=== PATIENT | female | born 1950 | race Hispanic/Latino ===

== ENCOUNTER 2019-06-29 10:15 | Observation (INO) | payer MEDICARE, OTHER ==
--- NOTE | 2019-06-25 12:09 | Diagnostic Imaging Report ---
Chest, 2 views, 06/25/2019. History: Preop, thyroid surgery. Comparison: None available. Findings: The cardiomediastinal silhouette and pulmonary vasculature are within normal limits. The lungs are clear without evidence of consolidation or pleural effusion. Degenerative changes are noted in the upper thoracic spine. There are no acute osseous or soft tissue abnormalities. Impression: No acute cardiopulmonary abnormality. Signed by: Sonido Anaya on 06/25/2019 12:06 PM
[2019-06-25 12:12] LABS: BASOPHILS % 0.3 % (0.0-1.0); EOSINOPHILS # (AUTO) 0.1 (0.0-0.4); EOSINOPHILS % 1.2 % (0.0-6.0); HEMATOCRIT 39.9 % (34.2-44.1); HEMOGLOBIN 12.5 g/dL (12.0-16.0); LYMPHOCYTES # (AUTO) 2.6 (1.0-3.2); LYMPHOCYTES % 39.8 % (18.0-39.1); MEAN CORPUSCULAR HEMOGLOBIN 28.9 pg (28-32); MEAN CORPUSCULAR HGB CONC 31.3 g/dL (31-35); MEAN CORPUSCULAR VOLUME 92.1 fL (81-99); MONOCYTES # (AUTO) 0.5 (0.2-0.8); MONOCYTES % 6.8 % (4.4-11.3); NEUTROPHILS # (AUTO) 3.4 (2.1-6.9); NEUTROPHILS % 51.7 % (38.7-80.0); PLATELET COUNT 196 x10e3/uL (140-360); RED BLOOD COUNT 4.33 x10e6/uL (3.6-5.1); RED CELL DISTRIBUTION WIDTH 13.9 % (11.7-14.4)
[2019-06-25 12:30] LABS: ANION GAP 11.9 mmol/L (8-16); BLOOD UREA NITROGEN 13 mg/dL (7-26); BUN/CREATININE RATIO 19 (6-25); CALCIUM 9.5 mg/dL (8.4-10.2); CARBON DIOXIDE 28 mmol/L (22-29); CHLORIDE 105 mmol/L (98-107); EST GLOMERULAR FILTRATION RATE > 60 ML/MIN (60-); GLUCOSE 139 mg/dL (74-118); POTASSIUM 3.9 mmol/L (3.5-5.1); SODIUM 141 mmol/L (136-145)
[~2019-06-29] VITALS: Ht 157.5 cm; Wt 76.7 kg
[~2019-06-29 10:15] MED LIST: ALPRAZOLAM0.25 MG PO; ASPIRIN81 MG PO; ATENOLOL50 MG PO; ATORVASTATIN CA20 MG PO; CLOPIDOGREL75 MG PO; GLIPIZIDE5 MG PO; LISINOPRIL10 MG PO
--- OUTSIDE RECORDS SUMMARY | 2019-06-29 10:19 | XMS REPORT ---
Author Author [facility] Address Unknown Phone Unavailable Care Team Providers Care Transportation Assistant Name Role Phone MAYNOR BATES Unavailable Unavailable Problems This patient has no known problems. Allergies, Adverse Reactions, Alerts This patient has no known allergies or adverse reactions. Medications This patient has no known medications. Results Test Description Test Time Test Comments Text Results Atomic Results Result Comments CHEST 2 VIEWS 2019-06-25 12:04:00 [place] [address] Patient Name: LINDA GONZALEZ MR #: [id number] : 1950 Age/Sex: 69/F Req #: [id number] [facility] Physician: Ordered by: MAYNOR BATES MD Report #: [id number] Location: OR Room/Bed: Procedure: [id number] DX/CHEST 2 VIEWS Exam Date: Exam Time: REPORT STATUS: Signed Chest, 2 views, 06/25/2019. History: Preop, thyroid surgery. Comparison: None available. Findings: The cardiomediastinal silhouette and pulmonary vasculature are within normal limits. The lungs are clear without evidence of consolidation or pleural effusion. Degenerative changes are noted in the upper thoracic spine. There are no acute osseous or soft tissue abnormalities. Impression: No acute cardiopulmonary abnormality. Signed by: Leonora Anaya on 06/25/2019 12:06 PM Dictated By: LEONORA ANAYA MD 1206 Transcribed By: LIBIA on 06/25/19 1206 COPY TO: MAYNOR BATES MD BREAST STEREO CORE BIOPSY RIGHT 2019-04-23 16:51:56 - BREAST STEREO CORE BIOPSY RIGHTSTEREOTACTIC GUIDED BIOPSY RIGHT BREAST USING VACUUM DEVICE WITH MARKING DEVICE INSERTED AND POST MAMMOGRAPHIC IMAGIN04/19/2019CLINICAL: Stereotactic Biopsy, right breast. Comparison is made to exams dated 02/06/2019 mammogram, 01/18/2018 mammogram, and [facility] A stereotactic guided biopsy was performed for the area of calcifications located in the right breast at 1 o'clock. This was described on the previous mammography report. The skin was prepped in the usual manner. Local anesthetic was administered to the access site. The abnormality was approached using an upright digital mammography unit. A 10 gauge biopsy needle was placed adjacent to the abnormality under computer guidance and confirmatory stereotactic mamm ography images were obtained to document needle placement. Once the needle was documented to be in the correct location, multiple specimens were obtained using the [employer] system. A clip was inserted into the biopsy cavity. A skin closure strip was applied to the access site. Post procedure mammographic imaging was obtained. The specimens were sent to the laboratory for pathological analysis. IMPRESSION: STEREOTACTIC GUIDED BIOPSY BENIGN Stereotactic guided biopsy of the area of calcifications in the right breast at 1 o'clock was performed. PATHOLOGY INDICTES:Benign fibroadenoma with calcifications. A follow-up mammogram and an ultrasound in 6 months is recommended to demonstrate stability. Ary Rae M.D. dm/:04/23/2019 16:51:56 Attending Technologist: Harriet ROWE, [facility]: Brandie ROWE RT(M), [facility]-letter sent: Benign Biopsy BREAST STEREO CORE BIOPSY RIGHT 2019-04-23 16:51:56 - BREAST STEREO CORE BIOPSY RIGHTSTEREOTACTIC GUIDED BIOPSY RIGHT BREAST USING VACUUM DEVICE WITH MARKING DEVICE INSERTED AND POST MAMMOGRAPHIC IMAGIN04/19/2019CLINICAL: Stereotactic Biopsy, right breast. Comparison is made to exams dated 02/06/2019 mammogram, 01/18/2018 mammogram, and 09/26/2015 [facility]ogram [facility] A stereotactic guided biopsy was performed for the area of calcifications located in the right breast at 1 o'clock. This was described on the previous mammography report. The skin was prepped in the usual manner. Local anesthetic was administered to the access site. The abnormality was approached using an upright digital mammography unit. A 10 gauge biopsy needle was placed adjacent to the abnormality under computer guidance and confirmatory stereotactic mamm ography images were obtained to document needle placement. Once the needle was documented to be in the correct location, multiple specimens were obtained using the [employer] system. A clip was inserted into the biopsy cavity. A skin closure strip was applied to the access site. Post procedure mammographic imaging was obtained. The specimens were sent to the laboratory for pathological analysis. IMPRESSION: STEREOTACTIC GUIDED BIOPSY BENIGN Stereotactic guided biopsy of the area of calcifications in the right breast at 1 o'clock was performed. PATHOLOGY INDICTES:Benign fibroadenoma with calcifications. A follow-up mammogram and an ultrasound in 6 months is recommended to demonstrate stability. Ary Rae M.D. dm/:04/23/2019 16:51:56 Attending Technologist: Harriet ROWE, [facility] Technologist: Brandie ROWE RT(M), [facility] sent: Benign Biopsy DIAG MAMM RIGHT CAD DIGITAL 2019-03-02 09:16:48 - DIAG MAMM RIGHT CAD DIGITALUNILATERAL RIGHT DIGITAL DIAGNOSTIC MAMMOGRAM WITH CAD: 03/02/2019CLINICAL: Recall from screening. Current mammographic images were evaluated by either a [employer] M-Vu or a [employer] ImageChecker CAD (computer aided detection system). Comparison is made to exams dated 02/06/2019 mammogram, 01/18/2018 mammogram, and 09/26/2015 [facility]. There are scattered fibroglandular tissues in the right breast. Grouped coarse heterogenous calcifications in the right breast at 1 o'clock, 8 cm from the nipple. No suspicious mass, architectural distortion, or lymph node abnormality detected. IMPRESSION: SUSPICIOUS OF MALIGNANCYGrouped coarse heterogenous calcific lesions in the right breast at 1 o'clock, 8 cm from the nipple. Findings represent low suspic ion for malignancy, BI-RADS 4A. Stereotactic guided core biopsy is recommended at this time.Results were discussed with the patient.Bryon Marrero M.D. ss/:03/02/2019 09:16:48 Administrator: Lindsey ROWE, [facility]-letter sent: BIRADS 4/5 Biopsy Mammogram BI-RADS: 4a Suspicious abnormality - low suspicion for malignancy SCR MAMM BILATERAL JENNIFER CAD DIGITAL 2019-02-07 10:55:29 - SCR MAMM BILATERAL JENNIFER CAD DIGITALBILATERAL DIGITAL SCREENING MAMMOGRAM 3D/2D WITH CAD: 02/06/2019CLINICAL: Asymptomatic. Digital breast tomosynthesis was performed in addition to routine CC and MLO views. Current mammographic images were evaluated by either a [employer] M-Vu or a [employer] CAD (computer aided detection system). Comparison is made to exams dated 01/18/2018 mammogram, mammogram, and 09/19/2013 [facility]. There are scattered fibroglandular tissues in both breasts. There is a 3 mm grouping of calcifications in the upper inner right breast (at approximately 1 o'clock), middle depth, 8 cm from the nipple. No other significant masses, calcifications, or other findings are seen in either breast. IMPRESSION: INCOMPLETE ASSESSMENT: ADDITIONAL IMAGING EVALUATION RECOMMENDEDThe 3 mm grouping of calcifications in the right breast are indeterminate. Additional views with possible ultrasound are recommended. Syl Guzman D.O. al/: 02/07/2019 10:55:29 Administrator: Lindsey ROWE [facility] sent: Additional Imaging Mammogram BI-RADS: 0 Indeterminate
[2019-06-29] MEDS ORDERED: CEFAZOLIN SOD 1 GM/NS 50ML 100 ML IV ONE (10:40)
[2019-06-29] MEDS ORDERED: DEXAMETHASONE SOD PHOS INJ 4 MG/ML VIAL ONE (12:49)
[2019-06-29] MEDS ORDERED: ROCURONIUM BROMIDE 10 MG/ML 5ML VIAL ONE (12:49)
[2019-06-29] MEDS ORDERED: ONDANSETRON HCL INJ 2MG/ML 2ML 2 MG/ML VIAL ONE (12:49)
[2019-06-29] MEDS ORDERED: SEVOFLURANE INHAL SOLN 250 ML PEN BTL ONE (12:49)
[2019-06-29] MEDS ORDERED: GLYCOPYRROLATE INJ 1MG/ 5 ML SYR ONE (12:49)
[2019-06-29] MEDS ORDERED: NEOSTIGMINE 5 MG/5ML SYR ONE (12:49)
[2019-06-29] MEDS ORDERED: ACETAMINOPHEN 1000 MG/100 ML IV ONE (12:49)
[2019-06-29] MEDS ORDERED: PROPOFOL IV EMULSION 10 MG/ML 20 ML VIAL ONE (12:49)
[2019-06-29] MEDS ORDERED: LIDOCAINE HCL 2% LOCAL INJ 5 ML SDV VIAL INJ ONE (12:49)
[2019-06-29] MEDS ORDERED: MIDAZOLAM HCL 2 MG/2 ML VIAL ONE (13:01)
[2019-06-29] MEDS ORDERED: FENTANYL CITRATE/PF 100MCG/2 ML INJ ONE ×2 (13:01→16:32)
[2019-06-29] MEDS ORDERED: LIDOCAINE HCL (LTA) 4 ML SOLN ONE (14:36)
[2019-06-29] MEDS ORDERED: ACETAMINOPHEN 1000 MG/100 ML 100 ML IV ONE (15:48)
[2019-06-29] MEDS ORDERED: HYDROCODONE/APAP 5MG-325MG TAB PO PRN (16:15)
[2019-06-29] MEDS ORDERED: ONDANSETRON HCL INJ 2MG/ML 2ML 2 MG/ML VIAL IV PRN (16:15)
[2019-06-29] MEDS ORDERED: DEXTROSE 50% SYRINGE 50 ML IV PRN (16:15)
[2019-06-29] MEDS ORDERED: MORPHINE SULFATE INJ 4 MG/ML INJ 1ML IV PRN (16:15)
[2019-06-29] MEDS: INSULIN LISPRO 100 UNIT/1 ML 3ML VIAL SQ SCH ×2 (16:30→21:00)
[2019-06-29] MEDS: ATENOLOL 50 MG TAB PO SCH (17:00)
--- NOTE | 2019-06-29 17:15 | NUR ---
patient arrived to unit via stretcher from PACU. alert and oriented but drowsy with son at bedside. call bates within reach and bed in lowest position.
[2019-06-29 17:22] VITALS: BP 187/83
[2019-06-29 17:24] VITALS: BP 187/83
[2019-06-29] MEDS ORDERED: PNEUMOCOCCAL VACCINE POLYVALENT 23 MCG/0.5 ML VIAL IM SCH (17:25)
[2019-06-29 17:26] VITALS: BP 187/83
--- NOTE | 2019-06-29 18:17 | Operative Report ---
DATE OF PROCEDURE: 06/29/2019 SURGEON: Bebeto Kinney MD PREOPERATIVE DIAGNOSIS: Right thyroid mass. POSTOPERATIVE DIAGNOSIS: Right thyroid mass. PROCEDURE: Right thyroid lobectomy. COMPRESSOR STATION CHIEF ENGINEER: None. ANESTHESIA: General endotracheal. INDICATIONS AND FINDINGS: The patient is a 69-year-old female, who presented with a large mass in right lobe of the thyroid. Surgery was a large mass in the right lobe of the thyroid to replacing almost the entire right lobe of the thyroid. Frozen section appeared to be benign. TECHNIQUE: After adequate general endotracheal anesthesia, placed in supine position. Neck was prepped and draped in a sterile fashion with ChloraPrep solution. Transverse incision made approximately 2 cm above the sternal notch, carried down through subcutaneous tissue and platysma. Subplatysmal flaps were raised superiorly and inferiorly. Strap muscles were divided in the midline. There was a large mass involving the right lobe of the thyroid. This was mobilized from lateral to medial and middle thyroid vein was dissected free and divided between hemoclips as the mass was mobilized. Vessels going to the thyroid were dissected free and divided between hemoclips. Recurrent laryngeal nerve was identified and preserved. Parathyroid also identified and preserved. The mass appeared to be compressing the trachea was extended posteriorly pushing on the trachea and larynx, as it was mobilized. The recurrent laryngeal nerve was identified and preserved. The superior pole vessels were dissected free and divided between hemoclips was then close to the thyroid. The mass was dissected off the recurrent laryngeal nerve and it was completed free then divided close to the isthmus with the isthmus suture ligated with 2-0 Vicryl. The mass was submitted to pathology, appeared to be benign. Hemostasis was seen to be adequate. A 10 mm flat Naveen-Jordan drain was placed into the wound beneath the strap muscles through a separate stab wound incision. The strap muscles were then closed, reapproximated in the midline using 2-0 Vicryl. The platysma was closed with a running suture of 3-0 Vicryl. Skin was closed with a running subcuticular suture of 4-0 Vicryl. Steri-Strips and sterile dressing were applied. The patient tolerated the procedure well. Estimated blood loss was 5 mL. There were no complications. All counts were correct. The patient was taken to the recovery room in satisfactory condition. MD BRIDGET Magdaleno/VIOLETTE /[id number] cc: Yonny Bosch MD
--- NOTE | 2019-06-29 18:50 | NUR ---
rounded with overnight caregiver nurse, patient aware of change and in no distress. call bates within reach, bed in lowest position and son at bedside.
[2019-06-29] MEDS: SODIUM CHLORIDE 0.9% 1000ML 1,000 ML IV SCH ×2 (19:23→21:27)
[2019-06-29 19:38] VITALS: BP 187/83
[2019-06-29 20:00] VITALS: BP 168/86
[2019-06-29] MEDS ORDERED: ATORVASTATIN 20 MG TAB PO SCH (21:00)
[2019-06-29] MEDS ORDERED: ALPRAZOLAM 0.25 MG TAB PO SCH (21:00)
[2019-06-29] MEDS: CEFAZOLIN SOD 1 GM/NS 50ML 100 ML IV SCH (21:27)
[2019-06-29] MEDS ORDERED: CEFAZOLIN SOD 1 GM VIAL IV SCH (22:00)
[2019-06-30] VITALS: BP 139/74
[2019-06-30 04:00] VITALS: BP 127/69
[2019-06-30] MEDS: CEFAZOLIN SOD 1 GM/NS 50ML 100 ML IV SCH (05:19)
--- NOTE | 2019-06-30 06:50 | NUR ---
rounded with energy assistant nurse, patient aware of change and in no distress. call bates within reach and bed in lowest position.
[2019-06-30] MEDS ORDERED: GLIPIZIDE 5 MG TAB PO SCH (07:30)
[2019-06-30] MEDS: INSULIN LISPRO 100 UNIT/1 ML 3ML VIAL SQ SCH ×2 (07:30→11:14)
[2019-06-30 07:55] VITALS: BP 154/77
[2019-06-30 08:15] VITALS: BP 154/77
[2019-06-30] MEDS: ATENOLOL 50 MG TAB PO SCH (08:41)
[2019-06-30] MEDS ORDERED: LISINOPRIL 20 MG TAB PO SCH (09:00)
[2019-06-30 11:17] VITALS: BP 148/76
--- NOTE | 2019-06-30 13:10 | NUR ---
patient alert and oriented. emptied MAIKEL drain of 10cc of serosanguineous fluid. patient states pain is at a tolerable level and in no distress at this time.
[2019-06-30] MEDS ORDERED: TYLENOL WITH C1 EACH PO (15:17)
--- NOTE | 2019-06-30 15:30 | NUR ---
patient alert and oriented with son at bedside. discharge instructions given to patient at this time, as well as instructions of how to change dressing on neck as needed and empty MAIKEL drain. Both verbalized understanding. IV discontinued, catheter in tact and pressure dressing applied. patient to be wheeled to personal auto for son to drive home.
[2019-06-30 15:35] VITALS: BP 131/73
== END 2019-06-30 15:39 | disposition home or self-care (01) ==
LOC: OR 10:15 → PACU V 16:17 → IMCU 17:14
PROVIDERS: ADMIT Surgery; ATTEND Surgery
DX: C73 Malignant neoplasm of thyroid gland (principal); R13.10 Dysphagia, unspecified; I10 Essential (primary) hypertension; E11.9 Type 2 diabetes mellitus without complications; Z01.810 Encounter for preprocedural cardiovascular examination; Z01.812 Encounter for preprocedural laboratory examination; Z01.811 Encounter for preprocedural respiratory examination; I25.10 Atherosclerotic heart disease of native coronary artery without angina pectoris; Z95.5 Presence of coronary angioplasty implant and graft; Z79.82 Long term (current) use of aspirin; Z79.84 Long term (current) use of oral hypoglycemic drugs; Z23 Encounter for immunization
CPT/HCPCS: 36415 ×3; 60220; 71046; 80048; 82948 ×2; 85025; 88307; 88333; 88342; 90732; 93005; G0009; G0378 ×2; J0131; J0690; J1100; J2001; J2250; J2270; J2405; J2704; J3010; J3490; J7030

== ENCOUNTER 2019-08-02 09:19 | Inpatient (IN) | payer MEDICARE ==
[2019-07-30 12:02] LABS: BASOPHILS % 0.2 % (0.0-1.0); EOSINOPHILS # (AUTO) 0.1 (0.0-0.4); EOSINOPHILS % 0.9 % (0.0-6.0); HEMATOCRIT 39.3 % (34.2-44.1); HEMOGLOBIN 12.8 g/dL (12.0-16.0); LYMPHOCYTES # (AUTO) 3.4 (1.0-3.2); LYMPHOCYTES % 39.5 % (18.0-39.1); MEAN CORPUSCULAR HEMOGLOBIN 29.6 pg (28-32); MEAN CORPUSCULAR HGB CONC 32.6 g/dL (31-35); MONOCYTES # (AUTO) 0.7 (0.2-0.8); MONOCYTES % 7.7 % (4.4-11.3); NEUTROPHILS # (AUTO) 4.4 (2.1-6.9); NEUTROPHILS % 51.4 % (38.7-80.0); PLATELET COUNT 175 x10e3/uL (140-360); RED BLOOD COUNT 4.32 x10e6/uL (3.6-5.1); RED CELL DISTRIBUTION WIDTH 13.9 % (11.7-14.4)
[2019-07-30 12:20] LABS: ANION GAP 10.7 mmol/L (8-16); BLOOD UREA NITROGEN 14 mg/dL (7-26); BUN/CREATININE RATIO 18 (6-25); CALCIUM 9.5 mg/dL (8.4-10.2); CARBON DIOXIDE 28 mmol/L (22-29); CHLORIDE 107 mmol/L (98-107); CREATININE, SERUM 0.77 mg/dL (0.57-1.11); EST GLOMERULAR FILTRATION RATE > 60 ML/MIN (60-); GLUCOSE 109 mg/dL (74-118); POTASSIUM 3.7 mmol/L (3.5-5.1); SODIUM 142 mmol/L (136-145)
[2019-08-02] VITALS (18 sets, daily range): BP systolic 81–169; BP diastolic 47–83
[~2019-08-02] VITALS: Ht 157.5 cm; Wt 74.9 kg
[~2019-08-02 09:19] MED LIST changes: +TYLENOL WITH C1 EACH PO
--- OUTSIDE RECORDS SUMMARY | 2019-08-02 09:21 | XMS REPORT | Clinical Summary ---
Author Author [facility] Address Unknown Phone Unavailable Care Team Providers Care Basin Operator Name Role Phone Yonny Estevez MD PCP Allergies No Known Allergies Medications End Date Status Medication Sig Dispensed Refills Start Date Active glipiZIDE (GLUCOTROL) 5 Take 5 mg by 0 MG tablet mouth 2 (two) times a day before meals. Active atenolol (TENORMIN) 50 MG Take 50 mg by 0 tablet mouth daily. Active lisinopril Take 5 mg by 0 (PRINIVIL,ZESTRIL) 5 MG mouth daily. tablet Active pantoprazole (PROTONIX) Take 40 mg by 0 40 MG EC tablet mouth daily. Active citalopram (CeleXA) 20 MG Take 20 mg by 0 tablet mouth daily. Active aspirin (ECOTRIN) 81 MG Take 81 mg by 0 enteric coated tablet mouth daily. Active MULTIVIT Take by 0 &MINERALS/FERROUS FUM mouth. (MULTI VITAMIN ORAL) Active hydroCHLOROthiazide Take 12.5 mg 0 (HYDRODIURIL) 12.5 MG by mouth tablet daily. Active simvastatin (ZOCOR) 40 MG Take 40 mg by 0 tablet mouth nightly. Active Problems Problem Noted Date Coronary artery disease 10/13/2016 Ischemic chest pain 10/08/2016 Coronary artery disease involving [place] coronary artery of [place] heart 10/08/2016 without angina pectoris Stenosis of carotid artery 10/08/2016 Family History Medical History Relation Name Comments Heart disease Father Relation Name Status Comments Father Mother Social History Date Tobacco Use Types Packs/Day Years Used Never Smoker Smokeless Tobacco: Never Used Tobacco Cessation: Counseling Given: No Drinks/Week oz/Week Comments Alcohol Use 1 Glasses of wine 1.0 Yes Sex Assigned at Date Recorded Not on file Industry Job Start Date Occupation Not on file Not on file Not on file Travel End Travel History Travel Start No recent travel history available. Last Filed Vital Signs Not on file Plan of Treatment Health Maintenance Due Date Last Done Comments BREAST CANCER SCREENING 1999 COLONOSCOPY SCREENING 1999 SHINGLES VACCINES (#1) 1999 65+ PNEUMOCOCCAL VACCINE 2014 (1 of 2 - PCV13) INFLUENZA VACCINE 06/07/2019 Implants Device Identifier Shelf Expiration Date Model / Serial / Lot Implanted Type Area Manufactur er 07/16/2017 [id number] / / [id number] Stent Coronary Syst Synergy (Mr) Coronary N/A: N/A BSC 3.00mm X 24mm - [id number] Stents INTERVENTI Implanted: 10/13/2016 at [facility] (Quantity not on file) CARDIOLOGY 06/03/2017 [id number] / / [id number] Stent Coronary Syst Synergy (Mr) Coronary N/A: N/A BSC 3.00mm X 16mm - [id number] Stents INTERVENTI Implanted: 10/13/2016 at [facility] (Quantity not on file) CARDIOLOGY Results Not on fileafter 08/01/2018 Insurance Type Payer Benefit Subscriber ID Effective Phone Address Plan / Dates Group PPO HUMANA MEDICARE HUMANA xxxxxxxxx 2013-P MEDICARE resent PPO/PFFS/[facility] Advance Directives For more information, please contact: [phone] Patient Staff Cytotechnologist Explanation Type Date Recorded Advance Directives, Living Will and Medical Power of Repairer And Checker
[2019-08-02] MEDS ORDERED: CEFAZOLIN SOD 1 GM/NS 50ML 100 ML IV ONE (09:49)
[2019-08-02] MEDS ORDERED: ACETAMINOPHEN 1000 MG/100 ML 100 ML IV ONE (12:45)
[2019-08-02] MEDS ORDERED: MORPHINE SULFATE INJ 4 MG/ML INJ 1ML IV PRN (13:00)
[2019-08-02] MEDS ORDERED: ONDANSETRON HCL INJ 2MG/ML 2ML 2 MG/ML VIAL IV PRN (13:00)
[2019-08-02] MEDS ORDERED: DEXTROSE 50% SYRINGE 50 ML IV PRN (13:00)
[2019-08-02] MEDS ORDERED: HYDROMORPHONE 1MG/1ML INJ ONE (13:02)
--- OUTSIDE RECORDS SUMMARY | 2019-08-02 13:10 | XMS REPORT | Clinical Summary ---
Author Author [facility] Address Unknown Phone Unavailable Care Team Providers Care Audio Visual Arts Director Name Role Phone Yonny Estevez MD PCP [...] chest pain 10/08/2016 Coronary artery disease involving [place] coronary artery of [place] heart 10/08/2016 without angina pectoris Stenosis of [...] Lot Implanted Type Area Manufactur er 07/16/2017 [id number] / / [id number] Stent Coronary Syst Synergy (Mr) Coronary N/A: N/A BSC 3.00mm X 24mm - [id number] Stents INTERVENTI Implanted: 10/13/2016 at [facility] (Quantity not on file) CARDIOLOGY 06/03/2017 [id number] / / [id number] Stent Coronary Syst Synergy (Mr) Coronary N/A: N/A BSC 3.00mm X 16mm - [id number] Stents INTERVENTI Implanted: 10/13/2016 at [facility] (Quantity not on file) CARDIOLOGY Results Not on fileafter 08/01/2018 Insurance Type Payer Benefit Subscriber ID Effective Phone Address Plan / Dates Group PPO HUMANA MEDICARE HUMANA xxxxxxxxx 2013-P MEDICARE resent PPO/PFFS/E [facility] Advance Directives For more information, please contact: [phone] Patient Director Case Explanation Type Date Recorded Advance Directives, Living Will and Medical Power of Purchasing Coordinator
[2019-08-02] MEDS ORDERED: FENTANYL CITRATE/PF 100MCG/2 ML INJ ONE ×2 (13:35→19:09)
[2019-08-02] MEDS ORDERED: HYDRALAZINE HCL 20 MG/ML VIAL ONE (14:29)
[2019-08-02] MEDS: GLIPIZIDE 5 MG TAB PO SCH (16:22)
[2019-08-02] MEDS: INSULIN LISPRO 100 UNIT/1 ML 3ML VIAL SQ SCH ×2 (16:22→21:00)
[2019-08-02] MEDS: ATENOLOL 50 MG TAB PO SCH (16:23)
--- NOTE | 2019-08-02 16:38 | NUR ---
PT C/O OF FEELING LIKE SHE NEEDS TO COUGH SOMETHING UP (WHEEZING NOTED) PT GASPING FOR AIR PT IS ON 2L NC SATING 99% PLACED PT ON MASK HIGH FLOW AT THIS TIME DUE TO SOB AND WHEEZING NOTED. 10L AT THIS TIME PT WHEEZING HAS STOPPED , FEELS BETTER AND IS NOT LESS ANXIOUS , WILL MONITOR CLOSELY
[2019-08-02] MEDS: SODIUM CHLORIDE 0.9% 1000ML 1,000 ML IV SCH ×2 (17:08→20:32)
--- NOTE | 2019-08-02 17:08 | NUR ---
REASSESSED PT WHO IS WITH FAMILY AT BEDSIDE WHO CONTINUES TO BE ON MASK . ASKED IF OK TO PLACE BACK TO NC. PT STATES MASK FEELS BETTER AT THIS TIME , WILL REASSESS IN A COUPLE MINUTES
--- NOTE | 2019-08-02 17:19 | NUR ---
PT CALLED LIGHT WITH SOB WITH MASK ON, DEEP BREATHINGS WERE ENCOURAGED TO RELAX, PAGED MD BATES FOR ORDERS . PT STATES NOT FEELING BETTER, PAGED MD BATES FOR ORDERS
--- NOTE | 2019-08-02 17:24 | NUR ---
SPOKE WITH PAULO , TOLD HIM ABOUT THE PT FEELING SOB, AND VERY ANXIOUS. MD ASKED TO TAKE DRESSING OFF NECK AND ASSESS FOR SWELLING. MD STATES HE WILL COME SEE PT NOW
--- NOTE | 2019-08-02 17:34 | NUR ---
CODE TEAM CALLED, MD BATES AT BEDSIDE Addendum: 08/02/19 at 1902 by Nina López RN 1745 TIME IS WRONG
--- NOTE | 2019-08-02 17:38 | NUR ---
ASSESSED DRESSING. NECK DOES NOT APPEAR SWOLLEN. INCISION IS CLOSED AND DRY AT THIS TIME PT IS NOW GASPING FOR AIR, SOB, VENTI MASK ON AND PT SATURATIONS RAPIDLY DROPPED FROM 95% TO LOW 80%. PT STARTED TURNING PURPLE, EYES ROLLED RAPID CALLED NO PULSE FELT, PLACED PT FLAT, COMPRESSIONS IMMEDIATELY STARTED.
[2019-08-02] MEDS ORDERED: SODIUM CHLORIDE 0.9% 500ML 500 ML ONE (18:15)
--- NOTE | 2019-08-02 18:26 | NUR ---
ANESTHESIA TEAM HERE TO TAKE PT TO OR. PT IS NOW OFF UNIT
[2019-08-02] MEDS ORDERED: ROCURONIUM BROMIDE 10 MG/ML 5ML VIAL ONE ×2 (18:30→18:50)
[2019-08-02] MEDS ORDERED: SEVOFLURANE INHAL SOLN 250 ML PEN BTL ONE ×2 (18:30→18:50)
[2019-08-02] MEDS ORDERED: GLYCOPYRROLATE INJ 1MG/ 5 ML SYR ONE (18:50)
[2019-08-02] MEDS ORDERED: NEOSTIGMINE 5 MG/5ML SYR ONE (18:50)
[2019-08-02] MEDS ORDERED: PROPOFOL IV EMULSION 10 MG/ML 20 ML VIAL ONE (18:50)
[2019-08-02] MEDS ORDERED: LIDOCAINE HCL 2% LOCAL INJ 5 ML SDV VIAL INJ ONE (18:50)
[2019-08-02] MEDS ORDERED: ONDANSETRON HCL INJ 2MG/ML 2ML 2 MG/ML VIAL ONE (18:50)
[2019-08-02] MEDS ORDERED: DEXAMETHASONE SOD PHOS INJ 4 MG/ML VIAL ONE (18:50)
[2019-08-02] MEDS ORDERED: MIDAZOLAM HCL 2 MG/2 ML VIAL ONE (19:09)
--- NOTE | 2019-08-02 19:21 | NUR ---
REPORT CALLED TO MINA IN ICU
--- NOTE | 2019-08-02 19:31 | Operative Report ---
DATE OF PROCEDURE: 08/02/2019 SURGEON: Bebeto Kinney MD PREOPERATIVE DIAGNOSIS: Carcinoma of the thyroid gland. POSTOPERATIVE DIAGNOSIS: Carcinoma of the thyroid gland, status post right lower thyroid lobectomy. PROCEDURE: Left thyroid lobectomy for completion of total thyroidectomy. POULTRY SCIENTIST: None. ANESTHESIA: General. INDICATIONS AND FINDINGS: The patient is a 69-year-old female had surgery a few weeks ago for large mass in the right lobe of the thyroid, which on permanent section was found to be carcinoma. Surgery has found to have a small left lobe of the thyroid, which was overlying the lower thyroid cartilages, but extended down substernally. There was no residual right thyroid left that could be identified. TECHNIQUE: After adequate general endotracheal anesthesia, the patient in supine position, the neck was prepped and draped in a sterile fashion with ChloraPrep solution. According to the wound from the previous surgery, incision was made carried down through the subcutaneous tissue and platysma. Subplatysmal flaps were raised superiorly and inferiorly. There was considerable scarring in the area. Strap muscles were divided in the midline. Starting on the left side, the divided thyroid was identified and the left lobe identified, this was found at the level of the sternum. The strap muscles were attached to the sternum were divided to facilitate exposure of the thyroid. The patient's neck was very short with the thyroid cartilage extending down almost to the level of the sternum. The left lower thyroid was mobilized by dividing the middle thyroid vein. Vessels going to the thyroid were dissected free and divided between hemoclips. The recurrent laryngeal nerve was entered through the cricopharyngeal muscle and this was preserved. The superior parathyroid was also identified and preserved. The gland was mobilized from lateral to medial. Superior pole vessels were dissected free and divided between hemoclips and the gland was excised completely. Examination of the right side reveals some scarring, but the recurrent laryngeal nerve was identified on the right side were entered into the larynx, but there is no residual thyroid tissue which could be identified. Hemostasis was seen to be adequate and was irrigated with saline, inspected for hemostasis which was seen to be adequate. A 10 mm flat Naveen-Jordan drain was placed in the wound through a separate stab wound incision. The strap muscles then reapproximated in the midline using 2-0 Vicryl. The platysma closed with running suture of 3-0 Vicryl. Skin was closed with running subcuticular suture of 4-0 Vicryl. Dermabond and sterile dressing were applied. The patient tolerated the procedure well. Estimated blood loss was 20 mL. There were no complications. All counts were correct. The patient was taken to the recovery room in satisfactory condition. MD BRIDGET Magdaleno/VIOLETTE /[id number]
[2019-08-02 19:55] LABS: BASOPHILS % 0.2 % (0.0-1.0); EOSINOPHILS % 0.1 % (0.0-6.0); HEMOGLOBIN 10.5 g/dL (12.0-16.0); LYMPHOCYTES # (AUTO) 1.2 (1.0-3.2); LYMPHOCYTES % 13.7 % (18.0-39.1); MEAN CORPUSCULAR HEMOGLOBIN 29.9 pg (28-32); MEAN CORPUSCULAR HGB CONC 31.8 g/dL (31-35); MONOCYTES # (AUTO) 0.6 (0.2-0.8); MONOCYTES % 6.4 % (4.4-11.3); NEUTROPHILS # (AUTO) 6.7 (2.1-6.9); NEUTROPHILS % 78.4 % (38.7-80.0); PLATELET COUNT 151 x10e3/uL (140-360); RED BLOOD COUNT 3.51 x10e6/uL (3.6-5.1); RED CELL DISTRIBUTION WIDTH 13.8 % (11.7-14.4)
[2019-08-02] MEDS: ATORVASTATIN 40 MG TAB PO SCH (20:49)
[2019-08-02] MEDS: ALPRAZOLAM 0.25 MG TAB PO SCH (20:49)
--- NOTE | 2019-08-02 21:40 | NUR ---
Dr. Garcia rounding at bedside. ABG results hand delivered to Dr. Garcia. STAT orders received.
[2019-08-02 21:48] LABS: ABG HCO3 18 mmol/L (23-28); ABG PCO2 39 mmHg (41-51); ABG PH 7.27 (7.31-7.41); ABG PO2 127 mmHg (80-105)
[2019-08-02] MEDS: CEFAZOLIN SOD 1 GM/NS 50ML 50 ML IV SCH (22:00)
[2019-08-02 22:44] LABS: BASOPHILS % 0.1 % (0.0-1.0); HEMATOCRIT 31.8 % (34.2-44.1); HEMOGLOBIN 10.3 g/dL (12.0-16.0); LYMPHOCYTES # (AUTO) 0.7 (1.0-3.2); LYMPHOCYTES % 8.1 % (18.0-39.1); MEAN CORPUSCULAR HEMOGLOBIN 29.7 pg (28-32); MEAN CORPUSCULAR HGB CONC 32.4 g/dL (31-35); MEAN CORPUSCULAR VOLUME 91.6 fL (81-99); MONOCYTES # (AUTO) 0.6 (0.2-0.8); MONOCYTES % 6.7 % (4.4-11.3); NEUTROPHILS # (AUTO) 7.3 (2.1-6.9); NEUTROPHILS % 84.1 % (38.7-80.0); PLATELET COUNT 162 x10e3/uL (140-360); RED BLOOD COUNT 3.47 x10e6/uL (3.6-5.1)
--- NOTE | 2019-08-02 22:48 | Diagnostic Imaging Report ---
EXAMINATION: CHEST SINGLE (PORTABLE) INDICATION: ^intubated ^[id number] ^[id number] COMPARISON: 06/25/2019 FINDINGS: AP view TUBES and LINES: Endotracheal tube in place with tip approximately 1.6 cm above ashley. LUNGS: Lungs are well inflated. Mild central vascular congestion. PLEURA: No pleural effusion or pneumothorax. HEART AND MEDIASTINUM: The cardiomediastinal silhouette is enlarged. BONES AND SOFT TISSUES: No acute osseous lesion. Surgical wanda are seen projecting over the neck base, and biapical lungs. UPPER ABDOMEN: No free air under the diaphragm. IMPRESSION: Prominent cardiomediastinal silhouette and mild central vascular congestion. Endotracheal tube in place with tip approximately 1.6 cm above ashley. Signed by: Dr. Candido Edwards MD on 08/02/2019 10:44 PM
[2019-08-02 22:56] LABS: ANION GAP 14.2 mmol/L (8-16); BLOOD UREA NITROGEN 12 mg/dL (7-26); BUN/CREATININE RATIO 18 (6-25); CARBON DIOXIDE 18 mmol/L (22-29); CHLORIDE 109 mmol/L (98-107); CREATININE, SERUM 0.66 mg/dL (0.57-1.11); EST GLOMERULAR FILTRATION RATE > 60 ML/MIN (60-); GLUCOSE 203 mg/dL (74-118); POTASSIUM 3.2 mmol/L (3.5-5.1); SODIUM 138 mmol/L (136-145)
[2019-08-02 23:01] LABS: CALCIUM 7.2 mg/dL (8.4-10.2)
--- NOTE | 2019-08-02 23:10 | NUR ---
Read STAT CXR and lab results to Dr. Garcia. Notified Dr. Garcia of BP 87/58 after NS 500 mL bolus. No orders received. stated OK to start low dose fentanyl gtt if BP maintains.
[2019-08-03] VITALS (42 sets, daily range): BP systolic 80–112; BP diastolic 43–71
--- NOTE | 2019-08-03 02:54 | NUR ---
Paged Dr. Garcia at [phone] regarding hypotension and low urine output. Awaiting return call.
--- NOTE | 2019-08-03 04:18 | Operative Report ---
DATE OF PROCEDURE: 08/02/2019 SURGEON: Bebeto Kinney MD PREOPERATIVE DIAGNOSIS: Neck wound hematoma, status post cricothyrotomy and thyroidectomy. POSTOPERATIVE DIAGNOSIS: Neck wound hematoma, status post cricothyrotomy and thyroidectomy. PROCEDURE: Exploration of neck wound with evacuation of hematoma, ligation of bleeding vessels, and closure clinical thyrotomy wound. CHEMISTRY LABORATORY TECHNICIAN: None. ANESTHESIA: General. INDICATIONS AND FINDINGS: The patient is a 69-year-old female, who had left thyroid lobectomy today and then developed stridor and respiratory arrest requiring cricothyrotomy. Surgery was found to be small amount of residual hematoma within the neck, which was a wound. There was bleeding from areas of muscle, which required suture ligation. The cricothyrotomy was removed and changed to endotracheal intubation and the cricothyrotomy wound was closed. TECHNIQUE: The patient suffered respiratory arrest on the floor. The neck wound was opened. Hematoma evacuated on the floor. Cricothyrotomy was done. She came to surgery. The neck was prepped with Betadine solution. The wound was opened. There was some residual hematoma, which was evacuated. Expiration revealed some bleeding from muscle. This was suture ligated with 2-0 Vicryl. There were three separate areas that were seen to be bleeding and oozing, and these areas were suture ligated with 2-0 Vicryl with hemostasis achieved. At this point, the cricothyrotomy tube was exchanged and Anesthesia was able to pass a bougie into the trachea. Tube in the cricothyrotomy site was removed and endotracheal tube was placed. There was some bleeding at the cricothyrotomy wound and this wound was closed with interrupted sutures of 2-0 Vicryl and with the closure, hemostasis was achieved. The wound was irrigated with saline, inspected for hemostasis. There was small amount of oozing from another spot of the muscle on the right side. This was suture ligated with 2-0 Vicryl. Hemostasis achieved. Wound was irrigated with saline. Some Surgicel gauze was placed, one on the left side of the trachea, one on the right side of the trachea and hemostasis was seem to be adequate. A 19-Russian Glenn drain was placed into the wound through a separate stab wound incision. The strap muscles where they had been open were repaired with interrupted suture to 2-0 Vicryl and reapproximated midline using 2-0 Vicryl. Platysma was closed with running suture of 3-0 Vicryl and skin was closed with wanda. Sterile dressing was applied. The patient tolerated the procedure well. Estimated blood loss for the entire procedure was about 15 mL plus an additional 30 mL of hematoma. There were no complications. All counts were correct and the patient was taken to the intensive care unit in satisfactory condition. MD BRIDGET Magdaleno/VIOLETTE /[id number]
[2019-08-03] MEDS ORDERED: SODIUM CHLORIDE 0.9% 1000ML 1,000 ML IV ONE (04:30)
[2019-08-03] MEDS ORDERED: SODIUM CHLORIDE 0.9% 1000ML 2,000 ML IV ONE (04:30)
--- NOTE | 2019-08-03 04:36 | NUR ---
Dr. Garcia paged again at 0401 regarding low BP and low urine output. Orders received for 1 L NS bolus, STAT central line or PICC insertion for possible need for vasopressors, stat H/H. Family updated on situation.
--- NOTE | 2019-08-03 04:53 | Consultation ---
DATE OF CONSULTATION: 08/02/2019 Pulmonary Critical Care Consultation REASON FOR CONSULT: ICU management. HISTORY OF PRESENT ILLNESS: Ms. Gaines is a 69-year-old female. She underwent a thyroid surgery done by Dr. Kinney for carcinoma of the thyroid. She had left thyroid lobectomy for completion of total thyroidectomy, partial surgery was done on 07/02. Postoperatively, she started having shortness of breath. She coded, she has a hematoma in the neck. She required cricothyroidotomy emergently for airway. As they were not able to intubate her, she was emergently taken to the OR and she underwent surgery and removal of the clots. The patient improved and was transferred to ICU. She has right now. PAST MEDICAL HISTORY: Diabetes and hypertension. PAST SURGICAL HISTORY: Thyroidectomy, cancer of thyroid. She also history of coronary artery disease. FAMILY AND SOCIAL HISTORY: She does not smoke. Does not drink. PHYSICAL EXAMINATION: VITAL SIGNS: Pulse of 67 and blood pressure 169/76. CHEST: Clear. ABDOMEN: Soft. EXTREMITIES: No pedal edema. NEUROLOGICALLY: She is sedated. LABORATORY DATA: White count of 8000, hemoglobin 10.5, and platelets 151. Chemistry is within normal limits. Blood gas is pending. ASSESSMENT: Ms. Gaines is a 69-year-old female. She was admitted for thyroidectomy. Post thyroidectomy, the patient had a cardiac arrest. CPR was done emergently. Emergent cricothyroidotomy was done. The patient was taken to the OR. Hematoma was evacuated. The patient was intubated and now, she is in the ICU. PLAN: I will continue the patient on vent support. Check ABG. Weaning as tolerated from the ventilator. Resume home medications. Recheck hemoglobin and hematocrit. Discussed with the patient's family at bedside in detail. Critical care time spent 50 minutes. MD KEVAN Dey/VIOLETTE /[id number]
[2019-08-03] MEDS ORDERED: VANCOMYCIN 1GM/NS 250 ML 250 ML IV ONE (05:00)
[2019-08-03] MEDS: FENTANYL CITRATE INJ 2,000 MCG in SODIUM CHLORIDE 0.9% 250ML 210 ML IV PRN ×3 (05:04→11:00)
[2019-08-03] MEDS ORDERED: VANCOMYCIN 1GM/NS 250 ML 250 ML ONE (05:06)
[2019-08-03] MEDS ORDERED: METHYLPREDNISOLONE SOD SUCC 125 MG/2ML VIAL ONE (05:06)
[2019-08-03 05:08] LABS: ANION GAP 11.8 mmol/L (8-16); BLOOD UREA NITROGEN 13 mg/dL (7-26); BUN/CREATININE RATIO 18 (6-25); CALCIUM 7.4 mg/dL (8.4-10.2); CARBON DIOXIDE 20 mmol/L (22-29); CHLORIDE 108 mmol/L (98-107); CREATININE, SERUM 0.71 mg/dL (0.57-1.11); EST GLOMERULAR FILTRATION RATE > 60 ML/MIN (60-); GLUCOSE 159 mg/dL (74-118); POTASSIUM 3.8 mmol/L (3.5-5.1); SODIUM 136 mmol/L (136-145)
[2019-08-03] MEDS ORDERED: SODIUM CHLORIDE 0.9% 250ML 250 ML ONE (05:13)
[2019-08-03 05:24] LABS: HEMATOCRIT 29.9 % (34.2-44.1); HEMOGLOBIN 9.6 g/dL (12.0-16.0); MEAN CORPUSCULAR HEMOGLOBIN 29.9 pg (28-32); MEAN CORPUSCULAR HGB CONC 32.1 g/dL (31-35); MEAN CORPUSCULAR VOLUME 93.1 fL (81-99); PLATELET COUNT 148 x10e3/uL (140-360); RED BLOOD COUNT 3.21 x10e6/uL (3.6-5.1)
[2019-08-03] MEDS ORDERED: METHYLPREDNISOLONE SOD SUCC 125 MG/2ML VIAL IV SCH (06:00)
--- NOTE | 2019-08-03 06:00 | NUR ---
Dr. Madison at bedside to insert central line. Patient showed no signs of acute distress during procedure.
[2019-08-03] MEDS: CEFAZOLIN SOD 1 GM/NS 50ML 50 ML IV SCH ×3 (06:15→22:08)
[2019-08-03] MEDS ORDERED: MIDAZOLAM HCL 2 MG/2 ML VIAL ONE ×2 (06:37→14:28)
[2019-08-03] MEDS: SODIUM CHLORIDE 0.9% 1000ML 1,000 ML IV SCH ×2 (07:00→19:00)
[2019-08-03] MEDS ORDERED: NOREPINEPHRINE 8 MG/D5W 250 ML 0 ML ONE (07:05)
[2019-08-03] MEDS ORDERED: NOREPINEPHRINE 8 MG/D5W 250 ML 250 ML ONE (07:07)
[2019-08-03] MEDS: INSULIN LISPRO 100 UNIT/1 ML 3ML VIAL SQ SCH ×4 (07:30→23:50)
--- NOTE | 2019-08-03 07:30 | NUR ---
Report given to Madison MARES. Family at bedside.
--- NOTE | 2019-08-03 07:38 | Diagnostic Imaging Report ---
EXAMINATION: CHEST XRAY LINE PLACEMENT INDICATION: ^check line placement ^[id number] ^[id number] COMPARISON: 08/02/2019 FINDINGS: AP view TUBES and LINES: Stable endotracheal tube. Status post right internal jugular central line placement with tip projecting over superior SVC. LUNGS: Lungs are well inflated. Again seen central vascular congestion. PLEURA: No pleural effusion or pneumothorax. HEART AND MEDIASTINUM: The cardiomediastinal silhouette is enlarged. BONES AND SOFT TISSUES: No acute osseous lesion. Soft tissues are unremarkable. UPPER ABDOMEN: No free air under the diaphragm. Neck base skin wanda and surgical clips are again seen. There is also a questionable surgical drain in place, which was not seen on prior exam. Alternatively, this could be external to patient. IMPRESSION: Status post right internal jugular central line placement with tip projecting over superior SVC. No visible pneumothorax. Enlarged cardiomediastinal silhouette and central vascular congestion. Underlying pneumonia cannot be excluded in the perihilar regions in the appropriate clinical context. Signed by: Dr. Cadnido Edwards MD on 08/03/2019 7:35 AM
[2019-08-03] MEDS: LISINOPRIL 20 MG TAB PO SCH (09:00)
[2019-08-03] MEDS: GLIPIZIDE 5 MG TAB PO SCH ×2 (09:00→16:40)
[2019-08-03] MEDS: ATENOLOL 50 MG TAB PO SCH ×2 (09:00→16:41)
--- NOTE | 2019-08-03 09:00 | NUR ---
Dr Parekh to bedside; son and daughter in law updated and plan of care discussed. Patient able to communicate by nodding head, writing on paper, and thumbs up.
[2019-08-03 09:25] LABS: INR 1.22
[2019-08-03 09:26] LABS: PARTIAL THROMBOPLASTIN TIME 29.9 seconds (23.8-35.5)
[2019-08-03] MEDS: METHYLPREDNISOLONE SOD SUCC 40 MG/ML VIAL 1ML IV SCH ×2 (09:50→21:05)
--- NOTE | 2019-08-03 10:00 | NUR ---
RT to bedside to obtain ABG. Son and Daughter in law became severely upset and stated that they understood "there would be no more need for blood draws after the placement of the central line and you all are in here poking on her again." Explained to family that the venous draws are what will be obtained via the CVL; however, arterial draws will still be done per the physician orders. Called Dr. Parekh who cancelled the ABG order.
--- NOTE | 2019-08-03 12:00 | NUR ---
Dr Kinney, CNO, ICU Mgr, and bedside RN conference with son and patient regarding plan of care for the weekend.
[2019-08-03] MEDS: MIDAZOLAM HCL 25 MG in SODIUM CHLORIDE 0.9% 50ML 45 ML IV PRN ×2 (12:30→19:00)
[2019-08-03] MEDS ORDERED: ETOMIDATE 40 MG/ 20ML VIAL IV ONE (14:08)
[2019-08-03] MEDS ORDERED: SUCCINYLCHOLINE CHLORIDE 20 MG/ML 10ML VIAL ONE (14:08)
[2019-08-03] MEDS ORDERED: FENTANYL CITRATE/PF 100MCG/2 ML INJ ONE (14:28)
[2019-08-03] MEDS: FAMOTIDINE 20 MG/2 ML VIAL IV SCH (16:40)
--- NOTE | 2019-08-03 19:00 | NUR ---
Report received. Assumed care. Assessment done. See interventions. Orally intubated with 7.0 FR ETT secured at 22cm at the lip. Vent settings: TV 500, FIO2 50%, PRVC 10 & PEEP 5cm. IVs: NS @ 100ml/hr, Levophed @ 5mcg/min, Versed 2mg/hr or 4ml/hr, & Fentanyl @ 100mcg/hr or 12.5ml/hr. Arouses easily. Nods head appropriately.
--- NOTE | 2019-08-03 20:30 | NUR ---
Call from Dr. Kinney. Update given. Wants us to try to wean Levophed.
[2019-08-03] MEDS: ATORVASTATIN 40 MG TAB PO SCH (21:00)
[2019-08-03] MEDS: ALPRAZOLAM 0.25 MG TAB PO SCH (21:00)
[2019-08-04] VITALS (17 sets, daily range): BP systolic 96–128; BP diastolic 48–71
--- NOTE | 2019-08-04 | NUR ---
Decreased Fentanyl to 75mcg/hr or 7.5 ml/hr per family request.
[2019-08-04 05:13] LABS: BASOPHILS % 0.1 % (0.0-1.0); HEMATOCRIT 23.8 % (34.2-44.1); HEMOGLOBIN 7.5 g/dL (12.0-16.0); LYMPHOCYTES # (AUTO) 1.4 (1.0-3.2); LYMPHOCYTES % 10.8 % (18.0-39.1); MEAN CORPUSCULAR HEMOGLOBIN 29.6 pg (28-32); MEAN CORPUSCULAR HGB CONC 31.5 g/dL (31-35); MEAN CORPUSCULAR VOLUME 94.1 fL (81-99); MONOCYTES # (AUTO) 0.8 (0.2-0.8); MONOCYTES % 6.4 % (4.4-11.3); NEUTROPHILS # (AUTO) 10.8 (2.1-6.9); NEUTROPHILS % 82.3 % (38.7-80.0); PLATELET COUNT 136 x10e3/uL (140-360); RED BLOOD COUNT 2.53 x10e6/uL (3.6-5.1); RED CELL DISTRIBUTION WIDTH 14.2 % (11.7-14.4)
[2019-08-04] MEDS: SODIUM CHLORIDE 0.9% 1000ML 1,000 ML IV SCH ×2 (05:14→16:49)
[2019-08-04 05:35] LABS: ANION GAP 8.7 mmol/L (8-16); CALCIUM 7.6 mg/dL (8.4-10.2); CARBON DIOXIDE 22 mmol/L (22-29); CHLORIDE 115 mmol/L (98-107); CREATININE, SERUM 0.67 mg/dL (0.57-1.11); EST GLOMERULAR FILTRATION RATE > 60 ML/MIN (60-); GLUCOSE 151 mg/dL (74-118); POTASSIUM 3.7 mmol/L (3.5-5.1); SODIUM 142 mmol/L (136-145)
[2019-08-04] MEDS: INSULIN LISPRO 100 UNIT/1 ML 3ML VIAL SQ SCH ×4 (06:04→20:59)
[2019-08-04 06:08] LABS: BLOOD UREA NITROGEN 19 mg/dL (7-26); BUN/CREATININE RATIO 28 (6-25)
[2019-08-04] MEDS: CEFAZOLIN SOD 1 GM/NS 50ML 50 ML IV SCH ×3 (06:19→21:15)
--- NOTE | 2019-08-04 06:38 | NUR ---
Able to wean Levophed to 3.5 mcg/min
[2019-08-04] MEDS: GLIPIZIDE 5 MG TAB PO SCH ×2 (07:07→17:00)
[2019-08-04] MEDS: LISINOPRIL 20 MG TAB PO SCH (07:08)
[2019-08-04] MEDS: ATENOLOL 50 MG TAB PO SCH ×2 (07:08→17:00)
--- NOTE | 2019-08-04 07:14 | Diagnostic Imaging Report ---
EXAMINATION: CHEST SINGLE (PORTABLE) INDICATION: Intubated COMPARISON: Chest radiograph 08/03/2019 FINDINGS: AP view TUBES and LINES: ET tube tip terminates in the mid intrathoracic trachea. Right IJ central venous catheter tip terminates in the upper aspect of the superior vena cava. LUNGS: Lungs are well inflated. There is no evidence of pneumonia or pulmonary edema. PLEURA: No pleural effusion or pneumothorax. HEART AND MEDIASTINUM: The cardiomediastinal silhouette is unremarkable. BONES AND SOFT TISSUES: No acute osseous lesion. Surgical clips in the right lower neck. UPPER ABDOMEN: No free air under the diaphragm. IMPRESSION: ET tube tip terminates in the mid intrathoracic trachea. No acute cardiopulmonary abnormality. Signed by: Genaro Montilla DO on 08/04/2019 7:11 AM
[2019-08-04 07:28] LABS: ANISOCYTOSIS SLIGHT; BAND NEUTROPHILS % (MANUAL) 4 %; LYMPHOCYTES % (MANUAL) 9 % (19-48); MONOCYTES % (MANUAL) 2 % (3.4-9.0); NEUTROPHILS % (MANUAL) 85 % (40-74); PLATELET ESTIMATE SLIGHTLY DECREASED; PLATELET MORPHOLOGY COMMENT NORMAL; RBC MORPHOLOGY COMMENT ABNORMAL
[2019-08-04] MEDS: FENTANYL CITRATE INJ 2,000 MCG in SODIUM CHLORIDE 0.9% 250ML 210 ML IV PRN (07:40)
[2019-08-04] MEDS: MIDAZOLAM HCL 25 MG in SODIUM CHLORIDE 0.9% 50ML 45 ML IV PRN (07:40)
--- NOTE | 2019-08-04 08:14 | NUR ---
Routine consult called to Dr Zavaleta.
[2019-08-04] MEDS: LEVOTHYROXINE SODIUM 100 MCG/VIAL IV SCH (08:15)
[2019-08-04] MEDS: FAMOTIDINE 20 MG/2 ML VIAL IV SCH ×2 (08:15→17:24)
[2019-08-04] MEDS: METHYLPREDNISOLONE SOD SUCC 40 MG/ML VIAL 1ML IV SCH ×2 (08:15→21:15)
[2019-08-04] MEDS ORDERED: NOREPINEPHRINE INJ 4MG/4ML 8 MG in DEXTROSE 5% 250ML 250 ML IV PRN (08:30)
[2019-08-04 10:41] LABS: % IRON SATURATION 18 % (15-50); IRON 39 ug/dL (50-170); TOTAL IRON BINDING CAPACITY 213 ug/dL (261-478); TRANSFERRIN 152 mg/dL (180-382)
[2019-08-04] MEDS ORDERED: ATROPINE SULFATE 0.1 MG/ML 10ML SYR ONE (13:35)
--- NOTE | 2019-08-04 18:07 | Consultation ---
DATE OF CONSULTATION: 08/04/2019 Cardiology Consultation CONSULTING PHYSICIAN: Marko Bolivar MD, Interventional Cardiology. REASON FOR CONSULTATION: The patient is status post cardiac arrest with bradycardia. HISTORY OF PRESENT ILLNESS: Ms. Gaines is a 69-year-old woman with history of coronary artery disease, status post drug-eluting stent PCI in 2016, hypertension, dyslipidemia and thyroid cancer, now status post thyroidectomy. Postoperatively developed PEA/asystole, sudden cardiac cath, revision of surgical site, now with drain in place. The patient transiently hypotensive, afterwards requiring Levophed, which now has been weaned off. She is awake with family at bedside and drain to neck with scant blood. She remains intubated and comfortable with marked sinus bradycardia into the 40s, responsive to atropine with heart rate going up to 70s after atropine is provided as well as with response to patient motion when in bed, moving extremities heart rate goes into the 50s from 40s. She nods no to chest pain or shortness of breath. REVIEW OF SYSTEMS: A 12 system review negative except for as noted above. ALLERGIES: NO KNOWN DRUG ALLERGIES. PAST MEDICAL HISTORY: As per HPI. SOCIAL HISTORY: No active smoking, alcohol, or drugs. FAMILY HISTORY: Noncontributory. PHYSICAL EXAMINATION: VITAL SIGNS: Temperature 98.3, heart rate 54 sinus bradycardia, blood pressure 98/50, respiratory rate 12, O2 saturation 100%, BMI 27.4. GENERAL: In no acute distress, alert. NECK: With a drain in place and anterior incision scar. CHEST: Clear to auscultation bilaterally. CARDIOVASCULAR: Regular rate and rhythm, normal S1, S2, no S3, no S4. Systolic ejection murmur 1/6. No rubs. On telemetry in sinus bradycardia. ABDOMEN: Soft, nontender. Bowel sounds positive. EXTREMITIES: Trace edema to all four extremities. The patient is intubated. CARDIOVASCULAR MEDICATIONS: Reviewed atorvastatin 80 mg at bedtime, status post methylprednisolone, lisinopril 40 mg daily on hold, atenolol 50 mg b.i.d. on hold. LABORATORY DATA: Studies reviewed. Sodium 142, potassium 3.7, chloride 112, bicarbonate 22, BUN 19, creatinine 0.6, glucose 151. White blood cells 13, hemoglobin 7.5, platelets of 136. INR 1.2. ASSESSMENT: 1. A 69-year-old woman with asymptomatic marked sinus bradycardia in the setting of postoperative state from neck surgery for thyroid cancer with drain in place. 2. Status post shock, now off Levophed. 3. Acute respiratory failure with vent support. 4. Status post pulseless electrical activity/asystole, sudden cardiac . 5. History of hypertension, diabetes, and dyslipidemia. RECOMMENDATIONS: 1. Avoid any chronotropic negative medications for antihypertensives at this point. 2. Atropine 0.5 mg IV q.1 hour p.r.n. heart rate less than 45. 3. Dopamine p.r.n. if systolic blood pressure less than 90 or in addition to atropine as needed if heart rate remains less than 40 after atropine administered. 4. Monitor H and H. 5. Continue to hold antiplatelets for now. The patient has history of remote PCI in 2016 and is currently anemic with drain in place in the neck, status post evacuation of neck hematoma. We will follow closely. Thank you for the opportunity to participate in the care of this pleasant woman, who I know as patient in the past. Please call with any questions, . MD KALPANA Mckeon/VIOLETTE /[id number]
--- NOTE | 2019-08-04 19:00 | NUR ---
Bedside report received from Madison Nichols RN. Pts daughter in law and 2 other family members present at the bedside per report. Care plan discussed with family. Current IV infusions reviewed. ETT and ventilator reviewed and assessed. Dressing and MAIKEL drain to pts neck assessed and C/D/I. SCDs present on the pt. Alternating pressure mattress, pink heel protectors, Allevyn Life Sacral Patch, pillows to bilateral arms/elbows and head/neck, black turning wedges and glide sheet in use. Cortes to gravity with clear, light real urine. No signs of distress noted at this time.
--- NOTE | 2019-08-04 19:10 | NUR ---
Discussed importance of protecting the pts ETT/airway with the pt and her 3 present family members. The pts restraints were found untied at this time to which the family members admitted to doing. They were receptive to retying the restraints at this time. The pt nods up and down indicating yes when asked if she is comfortable. No signs of distress noted at this time.
--- NOTE | 2019-08-04 19:52 | NUR ---
Pts [id number] notified my that she heard a strange noise at this time while walking with pts dtr in law into the room to assess the pt I asked if she had noticed where the noise came from. As I reached the pt to assess her the ventilator started to beep and I found that the ETT was disconnected from the ventilator. I then reconnected the ETT to the ventilator and explained to the pt, the dtr in law and 2 other present family members that I reconnected it. I then monitored the pt at the bedside for 2 minutes and NO signs of distress were noted. Pts dtr in law then thanked me and I said you're welcome.
--- NOTE | 2019-08-04 20:01 | NUR ---
Pt coughing. I assessed her at this time. Red streak tinged secretions noted in the ETT. Suctioned ETT twice, each time only advancing the in-line suction catheter 4-5 inches as the secretions where located in the visible ETT exposed outside of the pts mouth. Waited at the pts bedside until 2003. No distress noted. Asked pt if she feels better now to which she shook her head up and down indicating yes. 3 family members remain at the bedside.
--- NOTE | 2019-08-04 20:24 | NUR ---
Dr. Kinney just called for update on pt. Notified him of the pts vital signs, urine output, Fentanyl and Versed infusion rates and that the pts family was educated on the importance of protecting the pts airway and the use of wrist restraints as a safety measure due to them loosening and untying the restraints. No new orders received at this time.
[2019-08-04] MEDS: ATORVASTATIN 40 MG TAB PO SCH (20:55)
[2019-08-04] MEDS: ALPRAZOLAM 0.25 MG TAB PO SCH (20:56)
--- NOTE | 2019-08-04 21:00 | NUR ---
Pt gently turned to left side with assistance from Juan Del Rosario RN using the black turning wedges and glide sheet. Pt nods up and down indicating yes when asked if she if comfortable. Assessed cedeno tubing, SCD cords/tubing, ETT and vent tubing, IV tubing all WDP. Restraints assessed at this time and were found triple knot tied to the bed to which the pts daughter in law admitted to doing herself. I reinforced the need that the restraints need to be tied using only slip knots. Pt has no signs of distress at this time. Addendum: 08/04/19 at 2120 by Joi Garcia RN Pt and family notified of our intentions to turn the pt before we initiated turning her.
--- NOTE | 2019-08-04 21:15 | NUR ---
Medications administered at this time, refer to [facility] for further information. All medications names stated, route of administration, purpose for medication and desired effect of medications. (cefazolin and solu-medrol). Pts family present and did not ask any questions at this time.
--- NOTE | 2019-08-04 22:00 | NUR ---
Vitals documented. Pt safety assessed. Pt resting with eyes closed, no signs of distress noted at this time.
--- NOTE | 2019-08-04 23:00 | NUR ---
Pt notified we were going to turn her at this time per protocol. Pt gently turned to right side with assistance from Gauri Chaparro RN using glide sheet and black turning wedge system. Pt nods head up and down indicating that yes when asked if she is comfortable. Restraints, safety, SCDs, IV lines, cedeno assessed at this time and WDP. Pts son at the bedside and pts daughter in law is resting with eyes closed in the recliner. Pt has no signs of distress at this time.
--- NOTE | 2019-08-04 23:42 | NUR ---
Pts heart rate went to 39 for seconds then immediately started increasing up to greater than 45. HR currently 51. After assessing the pt the pts son turned monitor away from site of nursing staff and did not return it to original position. I then stated that the monitor has to remain where we (the nurses/staff) can see it and then returned the monitor to its original position.
--- NOTE | 2019-08-04 23:58 | NUR ---
2 male pt family members continue to stimulate the pt and are waking her up from sleep. Teaching given to pt and 2 family members regarding the need for the pt to rest tonight in case the doctors decided to being weaning trials in the morning. Explained that if the pt is tired success with weaning trials may be decreased. I asked the pt if she was having difficulty trying to sleep to which she nodded her head up and down indicating yes. I then asked her if she would like me to increase her sedation to help her rest and she nodded her head up and down yes. I then told the pt and her family member that I would increase the versed from 1mg/hr to 2mg/hr at this time per the pt request.
[2019-08-05] VITALS (25 sets, daily range): BP systolic 108–167; BP diastolic 56–86
--- NOTE | 2019-08-05 00:06 | NUR ---
2 male family members continue to talk to each other, move around the pts room, touching and talking to the pt. This is after teaching the importance of allowing the pt to rest. Please refer to previous note.
--- NOTE | 2019-08-05 00:26 | NUR ---
Pts family member removed and then tied left restraint very loosely to the bed frame. Teaching and demonstration provided regarding proper placement, use and purpose of restraints, and importance of preventing the pt from self extubation of her ETT. Pt 2 sons present at the bedside during teaching.
[2019-08-05] MEDS: SODIUM CHLORIDE 0.9% 1000ML 1,000 ML IV SCH ×2 (00:49→03:14)
--- NOTE | 2019-08-05 01:00 | NUR ---
Vital signs documented. Pt resting with eyes closed, no signs of distress noted. Pt repositioned with help from Gauri Chaparro RN.
--- NOTE | 2019-08-05 02:24 | NUR ---
RT in room assessing the pt at this time, no signs of distress noted.
--- NOTE | 2019-08-05 03:28 | NUR ---
Pts hr at 39 for less than 10 seconds then returned to 50-60s when we awakened her. Pts son and daughter in law at the bedside. Addendum: 08/05/19 at 0353 by Joi Garcia RN Educational paperwork on Atropine injection provided to family. (Atropine Injection [employer] 2019)
--- NOTE | 2019-08-05 04:20 | NUR ---
Versed decreased to 1mg/hr to taper for possible weaning trail today. Pt is awake and following simple commands and nods appropriately to questions and writes answers.
--- NOTE | 2019-08-05 04:38 | NUR ---
AM blood lab specimens collected from pts RIJ central line after verifying pt with medical record orders, labels and armband. Teaching provided to pt and family regarding central line blood draw and that pumps might beep during blood draw due to IV infusions temporarily held during blood draw. Specimens given to laboratory scientist.
--- NOTE | 2019-08-05 05:15 | NUR ---
Radiology present and taking chest x-ray at this time. Family went for walk down jha.
--- NOTE | 2019-08-05 05:35 | NUR ---
Pt coughing at this time. Suctioning of the ETT only provided (advanced in line suction catheter 5 inches). Small amount of blood streak/tinged sputum removed. RR 10, SPO2% 100%. No signs of distress noted post suctioning.
[2019-08-05 05:43] LABS: MEAN CORPUSCULAR HEMOGLOBIN 29.3 pg (28-32); MEAN CORPUSCULAR HGB CONC 31.4 g/dL (31-35); MEAN CORPUSCULAR VOLUME 93.3 fL (81-99); PLATELET COUNT 112 x10e3/uL (140-360); RED BLOOD COUNT 2.39 x10e6/uL (3.6-5.1); RED CELL DISTRIBUTION WIDTH 14.2 % (11.7-14.4)
--- NOTE | 2019-08-05 05:52 | NUR ---
Cortes and MAIKEL drain emptied at this time. Pt resting with eyes closed no signs of discomfort or distress noted. Pts son and daughter in law remain at the bedside.
[2019-08-05 05:59] LABS: HEMATOCRIT 22.3 % (34.2-44.1)
[2019-08-05 06:07] LABS: ANION GAP 8.6 mmol/L (8-16); BLOOD UREA NITROGEN 22 mg/dL (7-26); BUN/CREATININE RATIO 34 (6-25); CALCIUM 7.8 mg/dL (8.4-10.2); CARBON DIOXIDE 21 mmol/L (22-29); CHLORIDE 118 mmol/L (98-107); CREATININE, SERUM 0.65 mg/dL (0.57-1.11); EST GLOMERULAR FILTRATION RATE > 60 ML/MIN (60-); GLUCOSE 129 mg/dL (74-118); POTASSIUM 3.6 mmol/L (3.5-5.1); SODIUM 144 mmol/L (136-145)
--- NOTE | 2019-08-05 06:15 | NUR ---
Dr. Kinney present and assessing the pt. Notified him of Hgb and Hct, no new orders received at this time.
--- NOTE | 2019-08-05 06:20 | NUR ---
Dr. Kinney removed pts neck dressing and stated to leave the surgical site open to air. Gauri Chaparro RN witnessed.
[2019-08-05] MEDS: CEFAZOLIN SOD 1 GM/NS 50ML 50 ML IV SCH ×3 (06:26→21:36)
[2019-08-05] MEDS ORDERED: NOREPINEPHRINE 8 MG/D5W 250 ML 250 ML ONE (06:55)
--- NOTE | 2019-08-05 07:00 | NUR ---
Bedside report given to Madison Nichols RN. Care plan reviewed, pt son and daughter in law present at the bedside. No discomfort or distress noted or report from pt at this time.
--- NOTE | 2019-08-05 07:24 | Diagnostic Imaging Report ---
A single frontal view of the chest. HISTORY: Carcinoma thyroid, intubated COMPARISON: Chest radiograph August 04, 2019 DISCUSSION: Portable technique, limits sensitivity of the exam. Soft tissue attenuation partially limits sensitivity of the exam. Multiple overlying artifacts. Tubes/Lines: Unchanged appearance of the endotracheal tube and right internal jugular venous catheter. See impression. IMPRESSION: 1. Increased confluent opacity at the left lung base, compatible with atelectasis. Superimposed left pleural effusion and/or aspiration are considerations in the appropriate setting. 2. Central pulmonary vascular congestion and mild interstitial edema. Signed by: Dr. Ernesto Schofield D.O., M.M.M. on 08/05/2019 7:21 AM
[2019-08-05] MEDS: INSULIN LISPRO 100 UNIT/1 ML 3ML VIAL SQ SCH ×4 (07:30→20:52)
[2019-08-05] MEDS: LISINOPRIL 20 MG TAB PO SCH (07:41)
[2019-08-05] MEDS: GLIPIZIDE 5 MG TAB PO SCH ×2 (07:41→17:00)
[2019-08-05] MEDS: ATENOLOL 50 MG TAB PO SCH ×2 (07:41→17:00)
[2019-08-05] MEDS: METHYLPREDNISOLONE SOD SUCC 40 MG/ML VIAL 1ML IV SCH ×2 (08:44→20:43)
[2019-08-05] MEDS: LEVOTHYROXINE SODIUM 100 MCG/VIAL IV SCH (08:44)
[2019-08-05] MEDS: FAMOTIDINE 20 MG/2 ML VIAL IV SCH ×2 (08:44→17:20)
[2019-08-05] MEDS: ATROPINE SULFATE 0.1 MG/ML 10ML SYR IV PRN ×3 (10:07→22:51)
[2019-08-05] MEDS: MIDAZOLAM HCL 25 MG in SODIUM CHLORIDE 0.9% 50ML 45 ML IV PRN (19:38)
[2019-08-05] MEDS: FENTANYL CITRATE INJ 2,000 MCG in SODIUM CHLORIDE 0.9% 250ML 210 ML IV PRN (19:38)
[2019-08-05] MEDS: ALPRAZOLAM 0.25 MG TAB PO SCH (20:33)
[2019-08-05] MEDS: ATORVASTATIN 40 MG TAB PO SCH (20:33)
--- NOTE | 2019-08-05 22:52 | NUR ---
HR 45. 1/2 amp Atropine given IV.
[2019-08-06] VITALS (25 sets, daily range): BP systolic 124–168; BP diastolic 59–95
[2019-08-06] MEDS: ATROPINE SULFATE 0.1 MG/ML 10ML SYR IV PRN ×2 (00:44→07:30)
[2019-08-06] MEDS: SODIUM CHLORIDE 0.9% 1000ML 1,000 ML IV SCH ×3 (05:04→21:14)
[2019-08-06] MEDS: CEFAZOLIN SOD 1 GM/NS 50ML 50 ML IV SCH ×3 (05:04→20:57)
[2019-08-06] MEDS: INSULIN LISPRO 100 UNIT/1 ML 3ML VIAL SQ SCH ×4 (07:30→20:58)
[2019-08-06] MEDS: ATENOLOL 50 MG TAB PO SCH ×2 (07:44→16:43)
[2019-08-06] MEDS: GLIPIZIDE 5 MG TAB PO SCH ×2 (07:44→17:04)
[2019-08-06] MEDS: LISINOPRIL 20 MG TAB PO SCH (07:44)
[2019-08-06 08:14] LABS: BASOPHILS % 0.1 % (0.0-1.0); HEMOGLOBIN 7.7 g/dL (12.0-16.0); LYMPHOCYTES # (AUTO) 1.2 (1.0-3.2); LYMPHOCYTES % 11.2 % (18.0-39.1); MEAN CORPUSCULAR HEMOGLOBIN 30.7 pg (28-32); MEAN CORPUSCULAR HGB CONC 33.5 g/dL (31-35); MEAN CORPUSCULAR VOLUME 91.6 fL (81-99); MONOCYTES # (AUTO) 0.7 (0.2-0.8); MONOCYTES % 6.2 % (4.4-11.3); NEUTROPHILS # (AUTO) 8.5 (2.1-6.9); NEUTROPHILS % 76.9 % (38.7-80.0); PLATELET COUNT 146 x10e3/uL (140-360); RED BLOOD COUNT 2.51 x10e6/uL (3.6-5.1); RED CELL DISTRIBUTION WIDTH 14.2 % (11.7-14.4)
[2019-08-06 08:41] LABS: ANION GAP 10.3 mmol/L (8-16); BLOOD UREA NITROGEN 23 mg/dL (7-26); BUN/CREATININE RATIO 38 (6-25); CALCIUM 7.9 mg/dL (8.4-10.2); CARBON DIOXIDE 22 mmol/L (22-29); CHLORIDE 115 mmol/L (98-107); CREATININE, SERUM 0.61 mg/dL (0.57-1.11); EST GLOMERULAR FILTRATION RATE > 60 ML/MIN (60-); GLUCOSE 112 mg/dL (74-118); POTASSIUM 3.3 mmol/L (3.5-5.1); SODIUM 144 mmol/L (136-145)
[2019-08-06] MEDS ORDERED: FUROSEMIDE INJ 10 MG/ML 2 ML VIAL ONE (09:12)
[2019-08-06] MEDS: LEVOTHYROXINE SODIUM 100 MCG/VIAL IV SCH (09:16)
[2019-08-06] MEDS: METHYLPREDNISOLONE SOD SUCC 40 MG/ML VIAL 1ML IV SCH ×2 (09:16→20:58)
[2019-08-06] MEDS: FAMOTIDINE 20 MG/2 ML VIAL IV SCH ×2 (09:16→17:04)
[2019-08-06] MEDS ORDERED: POTASSIUM CHLORIDE 20MEQ/100ML 200 ML IV ONE (10:20)
--- NOTE | 2019-08-06 10:40 | Diagnostic Imaging Report ---
History: Post thyroidectomy Comparison studies: None Technique: Axial images were obtained from the skull base to the thoracic inlet. Coronal and sagittal images reconstructed from the axial data. Intravenous contrast: None Dose modulation, iterative reconstruction, and/or weight based adjustment of the mA/kV was utilized to reduce the radiation dose to as low as reasonably achievable. Findings: Evaluation of the neck is limited due to the absence of intravenous contrast. In spite of this limitation, Soft tissues: Fatty stranding and metallic wanda at the anterior neck. Atherosclerotic calcifications of the aortic arch and branches Lymph nodes: No radiographically significant adenopathy. Vessels: Cannot evaluate. Right internal jugular catheter with tip at the SVC Glands (parotid and submandibular): Normal in size and symmetric. No masses. Total thyroidectomy changes with drain and surgical clips in place. Expected hypodensity within surgical bed without mass effect. Orbits: No abnormalities. Paranasal sinuses: Mucosal thickening at the right sphenoid sinus Temporal bones: No abnormalities. Skull base and facial bones: Intact. The patient is intubated with distal endotracheal tube 2 cm from the ashley. Cervical spine: Grossly patent canal and mild bilateral degenerative foraminal narrowing at the mid cervical spine. Degenerative changes at the atlantoaxial joint. IMPRESSION: 1. Expected thyroidectomy changes with drainage catheter and surgical wanda at the surgical bed. 2. Bilateral pleural effusions with adjacent atelectasis. 3. Signed by: DR Matias Estrada M.D. on 08/06/2019 1:59 PM
[2019-08-06] MEDS ORDERED: FUROSEMIDE INJ 10 MG/ML 2 ML VIAL IV ONE (10:45)
--- NOTE | 2019-08-06 11:27 | Progress Note ---
DATE: 08/06/2019 SUBJECTIVE: The patient is currently not in room, was transferred to CT for evaluation of neck soft tissues and preparation for possible extubation for cricothyroidotomy in the OR later today. Review of telemetry in sinus rhythm. Some episodes of heart rate into the lowest 44, responsive to atropine per discussion with nurse, otherwise hemodynamically stable per report. Hemoglobin stable from 7 to 7.7 today. Exam deferred. The patient currently undergoing studies. ASSESSMENT AND PLAN: Continue p.r.n. atropine as needed for backup with dopamine. Continue to hold any chronotropic negative medications or antihypertensives for now and proceed with plan for assessment of site and possible extubation and management of airway per other treating provider. Marko Bolivar MD AFV/MODL /[id number]
[2019-08-06 13:29] LABS: ABG HCO3 20 mmol/L (23-28); ABG PCO2 33 mmHg (41-51); ABG PH 7.39 (7.31-7.41); ABG PO2 78 mmHg (80-105)
--- NOTE | 2019-08-06 13:37 | NUR ---
extubated in OR with anesthesia and Dr Kinney to [facility]. no complications. Addendum: 08/06/19 at 1554 by Gabby Ramirez RN [id number] is correct time extubated
--- NOTE | 2019-08-06 15:00 | NUR ---
weaned to 4l nc. tolerating well. o2 sats 100%
--- NOTE | 2019-08-06 16:39 | NUR ---
patient refused to turn at this time.
--- NOTE | 2019-08-06 19:20 | NUR ---
Nutrition Intervention Note RD Recommendation(s) for Physician: -Consult speech therapy for swallow study due to risk of aspiration -If PO is not feasible, recommends initiating Glucerna 1.2 @ 20mL/hr, advance as tolerated to, goal rate of 50 mL/hr, providing 1440kcal and water flush of 50 mL q 4hr (provides 1440 kcal, 72 g protein, and 1266 mL water/fluid) -Additional water flush per MD -Check labs, gastric tolerance and weight daily -If PO is feasible, recommend ADA 1600 diet as medically appropriate Plan of Care: RD following, monitoring for tolerance and adequacy, TF rec Nutrition reason for involvement: Diagnosis RD Assessment 08/06 - Pt is a 69 year old female admitted for thyroidectomy due to thyroid carcinoma. Post thyroidectomy, the patient had a cardiac arrest and was intubated at time of visit. Pt was extubated at 1437 and clear liquid diet has been ordered for dinner. Spoke to family member at bedside, who reported pt has not had any recent changes in her appetite and usually eats all of her meals. No wt loss reported and pt usually weighs 152 lbs. CXR showed possible aspiration (?). Rec to consult speech therapy for swallow eval. Will continue to monitor and follow. Principal Problems/Diagnoses: thyroid carcinoma, acute respiratory failure with vent support PMH: thyroidectomy, cancer of thyroid, coronary artery disease, HTN, DM I/O: 2200+/1195- GI: soft abdomen, 0 BM recorded Skin: intact Labs: (08/06) K 3.3, Ca 7.9 Meds: (08/06) NaCl, levothyroxine, famotidine, methylprednisolone, midazolam, fentanyl, insulin lispro, lisinopril, atorvastatin, Lipitor, ondansetron Ht: 62 inches Wt: 161 lbs per chart (family reported UBW ~152lbs) BMI: 29.4 kg/m2 IBW: 110 lbs +/- 10% Malnutrition Evaluation (08/06) The patient does not meet criteria for a specified degree of malnutrition at this time. Will re-evaluate at follow-up as appropriate. Energy intake: Adequate PO intake reported Weight loss: No weight loss reported Fat loss: no loss identified Muscle loss: no loss identified Supporting Evidence: Fluid accumulation: Trace edema to all four extremities per MD note 08/04 Functional Status: unable to evaluate Nutrition Prescription (Diet Order): clear liquid Estimated Nutritional Needs (extubated): Calories: 1360 - 1700kcal (20-25kcal/kg/d) Weight used: UBW 150lb, hx of cancer Protein: 68 102 g/day (1-1.5g/kg/d) Weight used: UBW 150lb Diet Adequacy: Not meeting calorie needs, Not meeting protein needs - clear liquid Tolerance: Pending Diet Education Needs Assessment: Diet education not indicated Nutrition Care Level: Low Nutrition Diagnosis: No nutrition diagnosis at this time. Goal: Patient will meet 75-100% of estimated needs by follow up Progress: N/A Interventions: Recommended Modification, Composition, Rate, Route, IVF, Collaboration with other providers Monitoring/Evaluation: -Total energy intake, Total protein intake, Formula/Solution, Modified diet, Weight change Signed: Flaquita Hutson MS, RD, LD
[2019-08-06] MEDS: ATORVASTATIN 40 MG TAB PO SCH (20:58)
[2019-08-06] MEDS: ALPRAZOLAM 0.25 MG TAB PO SCH (20:58)
[2019-08-07] VITALS (21 sets, daily range): BP systolic 117–159; BP diastolic 47–78
[2019-08-07] MEDS: CEFAZOLIN SOD 1 GM/NS 50ML 50 ML IV SCH ×3 (05:50→22:05)
[2019-08-07] MEDS: INSULIN LISPRO 100 UNIT/1 ML 3ML VIAL SQ SCH ×4 (07:30→20:10)
[2019-08-07] MEDS: METHYLPREDNISOLONE SOD SUCC 40 MG/ML VIAL 1ML IV SCH ×2 (08:19→21:30)
[2019-08-07] MEDS: FAMOTIDINE 20 MG/2 ML VIAL IV SCH ×2 (08:19→16:58)
[2019-08-07] MEDS: LEVOTHYROXINE SODIUM 100 MCG/VIAL IV SCH (08:19)
[2019-08-07] MEDS: GLIPIZIDE 5 MG TAB PO SCH ×2 (08:19→16:58)
[2019-08-07] MEDS: ATENOLOL 50 MG TAB PO SCH ×2 (08:20→16:59)
[2019-08-07] MEDS: LISINOPRIL 20 MG TAB PO SCH (08:22)
[2019-08-07] MEDS: SODIUM CHLORIDE 0.9% 1000ML 1,000 ML IV SCH (08:56)
--- NOTE | 2019-08-07 09:07 | NUR ---
ASSISTED PATIENT OUT OF BED TO CHAIR WITH MINIMUM ASSISTANCE AT 0840. PATIENT TOLERATING WELL.
[2019-08-07] MEDS ORDERED: FUROSEMIDE INJ 10 MG/ML 2 ML VIAL IV ONE (10:00)
[2019-08-07 10:30] LABS: BASOPHILS % 0.2 % (0.0-1.0); EOSINOPHILS # (AUTO) 0.1 (0.0-0.4); EOSINOPHILS % 0.8 % (0.0-6.0); HEMATOCRIT 24.4 % (34.2-44.1); HEMOGLOBIN 8.1 g/dL (12.0-16.0); LYMPHOCYTES # (AUTO) 1.4 (1.0-3.2); MEAN CORPUSCULAR HGB CONC 33.2 g/dL (31-35); MEAN CORPUSCULAR VOLUME 90.4 fL (81-99); MONOCYTES # (AUTO) 0.8 (0.2-0.8); NEUTROPHILS # (AUTO) 10.1 (2.1-6.9); NEUTROPHILS % 77.3 % (38.7-80.0); PLATELET COUNT 159 x10e3/uL (140-360); RED CELL DISTRIBUTION WIDTH 14.4 % (11.7-14.4)
[2019-08-07 10:55] LABS: ANION GAP 10.1 mmol/L (8-16); BLOOD UREA NITROGEN 19 mg/dL (7-26); BUN/CREATININE RATIO 33 (6-25); CALCIUM 7.8 mg/dL (8.4-10.2); CARBON DIOXIDE 24 mmol/L (22-29); CHLORIDE 111 mmol/L (98-107); CREATININE, SERUM 0.58 mg/dL (0.57-1.11); EST GLOMERULAR FILTRATION RATE > 60 ML/MIN (60-); GLUCOSE 140 mg/dL (74-118); POTASSIUM 3.1 mmol/L (3.5-5.1); SODIUM 142 mmol/L (136-145)
[2019-08-07 11:27] LABS: PLATELET ESTIMATE MODERATELY DECREASED; PLATELET MORPHOLOGY COMMENT FEW LARGE
[2019-08-07 11:28] LABS: RBC MORPHOLOGY COMMENT NORMAL
--- NOTE | 2019-08-07 15:26 | NUR ---
RECEIVED PATIENT FROM ICU. PATIENT A/O X3, EVEN RESPIRATIONS ON RA. BOWEL SOUNDS ACTIVE, NO EDEMA. LUNG SOUNDS CLEAR TO AUSCULTATION. RIGHT IJ TRIPLE LUMEN IN PLACE. NECK INCISION WITH TORIBIO, NO DRAINAGE. MAIKEL DRAIN TO LOWER RIGHT NECK. NO PAIN AT THIS TIME. SON AT BEDSIDE. CALL LIGHT IN REACH WILL CONTINUE TO MONITOR PATIENT.
--- NOTE | 2019-08-07 20:10 | NUR ---
Assessment done.no resp.distress.no pain voiced.neck incision site is open to air.wanda intact.thomas drain is in place.pericare given.iv right ij triple lumen intact.has dry eyes.notified to .received new orders.family member at bed side.bed locked and in lowest position.phone and call light within reach.instructed to call for assistance as needed.
[2019-08-07] MEDS ORDERED: ARTIFICIAL TEARS (OPTH) 15 ML BTL OU PRN (20:30)
[2019-08-07] MEDS ORDERED: SODIUM CHLORIDE 0.9% 250ML 250 ML ONE (21:14)
[2019-08-07] MEDS: ALPRAZOLAM 0.25 MG TAB PO SCH (21:25)
[2019-08-07] MEDS: ATORVASTATIN 40 MG TAB PO SCH (21:25)
--- NOTE | 2019-08-07 22:46 | Progress Note ---
DATE: 08/07/2019 Cardiology Progress Note SUBJECTIVE: No complaints today, status post cricothyroidotomy extubation. Denies chest pain or shortness of breath. She has no complaints today. On telemetry, in sinus rhythm, episodes of sinus bradycardia in the 50s observed, asymptomatic. OBJECTIVE: VITAL SIGNS: Temperature 97.4, heart rate 60, respiratory rate 16, blood pressure 142/47, O2 saturation 100%. GENERAL: In no acute distress. NECK: No JVD. Scar in the anterior neck with drain tube in place. CHEST: Clear to auscultation. CARDIOVASCULAR: Regular rate and rhythm. Normal S1 and S2. No S3 or S4. ABDOMEN: Soft and nontender. Bowel sounds positive. CARDIOVASCULAR MEDICATIONS: Reviewed. Atorvastatin 80 mg at bedtime, lisinopril 40 mg daily, p.r.n. atropine. LABORATORY DATA: Studies reviewed. Sodium 142, potassium 3.1, chloride 111, bicarbonate 24, BUN 19, creatinine 0.5, glucose 140. White blood cells 13, hemoglobin 8.1, and platelets 159. INR 1.2. ASSESSMENT: 1. A 69-year-old woman presents with sinus bradycardia in the setting of thyroid resection for thyroid cancer, complicated with neck hematoma requiring surgical evacuation, status post pulseless electrical activity arrest. RECOMMENDATIONS: 1. Continue p.r.n. atropine. 2. The patient remains anemic, status post significant hematoma with associated airway compromise, now resolved. Monitor for the next several days to a week off antiplatelet therapy. If though bleeding issues recurrent, suggest after 1 week initiating aspirin 81 mg daily, which can be performed as an outpatient. Continue rest of cardiovascular medications otherwise. The patient does have a history of remote CAD and stents in 2015. Marko Bolivar MD AFV/MODL /[id number]
[2019-08-08] VITALS (8 sets, daily range): BP systolic 137–170; BP diastolic 62–72
[2019-08-08] MEDS: CEFAZOLIN SOD 1 GM/NS 50ML 50 ML IV SCH ×3 (05:15→22:30)
--- NOTE | 2019-08-08 07:00 | NUR ---
BED SIDE SHIFT REPORT GIVEN TO THE ONCOMING RN.STABLE CONDITION.
[2019-08-08] MEDS: INSULIN LISPRO 100 UNIT/1 ML 3ML VIAL SQ SCH ×4 (07:30→20:19)
[2019-08-08] MEDS: GLIPIZIDE 5 MG TAB PO SCH ×2 (09:30→17:00)
[2019-08-08] MEDS: FAMOTIDINE 20 MG/2 ML VIAL IV SCH (09:30)
[2019-08-08] MEDS: ATENOLOL 50 MG TAB PO SCH ×2 (09:30→17:05)
[2019-08-08] MEDS: LISINOPRIL 20 MG TAB PO SCH (09:30)
[2019-08-08] MEDS: METHYLPREDNISOLONE SOD SUCC 40 MG/ML VIAL 1ML IV SCH ×2 (09:30→20:36)
[2019-08-08] MEDS: LEVOTHYROXINE SODIUM 100 MCG/VIAL IV SCH (09:30)
[2019-08-08] MEDS: HYDROCODONE/APAP 5MG-325MG TAB PO PRN ×2 (09:45→20:36)
[2019-08-08] MEDS ORDERED: ONDANSETRON HCL 4 MG ORAL DISINTEGRATING TAB PO PRN (10:15)
--- NOTE | 2019-08-08 12:45 | NUR ---
cedeno removed as per ordered pt tolerated well, pt dtv [phone]
--- NOTE | 2019-08-08 12:46 | NUR ---
thomas drain dc'd per Dr. Kinney, pt tolerated well, will continue to monitor
--- NOTE | 2019-08-08 13:16 | NUR ---
ORDERS REC'D FOR HOME HEALTH AND HOME WALKER CM CONFIRMED ADDRESS AND PHONE NUMBER WITH PT CHOICE LETTER SIGNED FOR [facility] [phone] FAXED CLINICAL TO [phone] CONFIRMATION REC'D WALKER PROVIDED FOR PT AND LEFT IN ROOM [facility] GRE[facility] SHEET COMPLETED AND WAITING FOR DR BATES'S SIGNATURE PLAN DC HOME TOMORROW
--- NOTE | 2019-08-08 13:27 | NUR ---
IMM EXPLAINED TO PT, SIGNED BY PT AND PLACED ON CHART COPY OF IMM TO PT
[2019-08-08] MEDS: FAMOTIDINE 20 MG TAB PO SCH (17:05)
[2019-08-08] MEDS: ATORVASTATIN 40 MG TAB PO SCH (20:36)
[2019-08-08] MEDS: ALPRAZOLAM 0.25 MG TAB PO SCH (21:00)
--- NOTE | 2019-08-08 23:52 | Progress Note ---
DATE: 08/08/2019 Cardiology Progress Note SUBJECTIVE: Denies any chest pain or shortness of breath. OBJECTIVE: VITAL SIGNS: Temperature 97.8, heart rate 59, blood pressure 144/71, and O2 saturation 97%. GENERAL: In no acute distress. NECK: With incision scar in place. CHEST: Clear to auscultation. CARDIOVASCULAR: Regular rate and rhythm. Normal S1 and S2. No S3. No S4. ABDOMEN: Soft, nontender. Bowel sounds positive. EXTREMITIES: No cyanosis, clubbing, or edema. LABORATORY DATA: Studies reviewed. White blood cells 13, hemoglobin 8.1, platelets 159, glucose 93. MEDICATIONS: Cardiovascular medications reviewed. Changes as follow, discontinue atenolol. ASSESSMENT AND RECOMMENDATIONS: A 69-year-old woman presents with acute hematoma and pulseless electric activity arrest with bradycardia, sinus, status post hematoma at the time of thyroidectomy for thyroid cancer. The patient with history of coronary artery disease with remote stents, hypertension, dyslipidemia. RECOMMEND: 1. Continue to hold aspirin for 7 days postoperatively to confirm no recurrence of the hematoma. The patient advised to resume aspirin 81 mg daily at home starting after seven days if no bleeding recurs. 2. Continue to hold beta-linda and any chronotropic negative medications for this week as the patient seems to have an increased vagal tone, status post recent hematoma at neck in proximity to the carotid bulbs. This can be resumed on followup as outpatient. 3. Continue rest of cardiovascular medications. 4. Okay to discharge from a Cardiovascular standpoint with outpatient followup in 1 to 2 weeks post discharge. MD KALPANA Mckeon/VIOLETTE /[id number]
[2019-08-09] MEDS ORDERED: AMLODIPINE BESYLATE 5 MG TAB PO ONE
[2019-08-09 00:07] VITALS: BP 173/74
[2019-08-09 05:19] VITALS: BP_SYST 187; BP_DIAS 64; BP_DIAS 77
[2019-08-09] MEDS: CEFAZOLIN SOD 1 GM/NS 50ML 50 ML IV SCH (06:08)
--- NOTE | 2019-08-09 06:44 | Discharge Summary ---
ADMISSION DIAGNOSIS: Carcinoma of the thyroid. DISCHARGE DIAGNOSES: Carcinoma of the thyroid with postoperative hemorrhage and airway obstruction. PRINCIPAL PROCEDURE: 1. Left thyroid lobectomy. 2. Evacuation of hematoma from the neck with bedside cricothyrotomy. 3. Exploration of neck wound with evacuation of hematoma and closure of cricothyrotomy wound. HISTORY OF PRESENT ILLNESS: The patient is a 69-year-old female, who previously underwent right thyroid lobectomy, removal of a large mass, which was found to be carcinoma of the thyroid. She was then readmitted to the hospital for completion total thyroidectomy. HOSPITAL COURSE: The patient underwent surgery same day as admission. She had left thyroid lobectomy. Postop, the patient developed some stridor and then she suffered respiratory arrest. She required evacuation of hematoma from the neck wound at the bedside with emergency cricothyrotomy. After this was done, the patient was stabilized, though was returned to surgery shortly afterward for exploration of the neck with hemostasis. At that time, the cricothyrotomy was removed. She was changed to endotracheal intubation. The patient remained intubated in the ICU for 4 days and was returned to surgery for extubation, which went without difficulty. During this time, she was awake and alert and remained hemodynamically stable. After this was done, she was observed in the ICU for 1 more day. She was started on diet. She tolerated without problem. She was transferred to the floor. She was out of bed ambulating, tolerating diet, wound remained clean, and she was discharged home on the 7th hospital day. At time of discharge, she was afebrile. She had mild hoarseness of her voice. Discharge medication was Levoxyl. She was tolerating diet. She will follow up with Dr. Kinney in approximately 1 week after discharge. She was sent home in satisfactory condition on regular diabetic diet. MD BRIDGET Magdaleno/VIOLETTE /[id number]
[2019-08-09] MEDS: INSULIN LISPRO 100 UNIT/1 ML 3ML VIAL SQ SCH (07:30)
[2019-08-09 08:31] VITALS: BP 163/70
[2019-08-09 08:56] VITALS: BP 163/70
[2019-08-09] MEDS: LISINOPRIL 20 MG TAB PO SCH (08:56)
[2019-08-09] MEDS: GLIPIZIDE 5 MG TAB PO SCH (08:56)
[2019-08-09] MEDS: FAMOTIDINE 20 MG TAB PO SCH (08:56)
[2019-08-09] MEDS: LEVOTHYROXINE SODIUM 100 MCG/VIAL IV SCH (08:56)
[2019-08-09] MEDS: METHYLPREDNISOLONE SOD SUCC 40 MG/ML VIAL 1ML IV SCH (08:56)
[2019-08-09] MEDS ORDERED: LEVOXYL25 MCG PO (11:10)
--- NOTE | 2019-08-09 11:40 | NUR ---
Discontinued patient's central line and wanda from incision in neck. Patient tolerated well. Tip of central line intact. patient tolerated well. Did discharge education with patient and patient's son. Both verbalized understanding.
[2019-08-09] MEDS ORDERED: AMLODIPINE BESYLATE 5 MG TAB PO SCH (21:00)
== END 2019-08-09 12:10 | disposition home health service (06) | DRG 826 ==
LOC: OR 09:19 → PACU V 12:51 → MED/SURG 16:00 → ICU 19:01 → OBSVTOIN 08-03 11:49 → MED/SURG 08-07 15:26
PROVIDERS: ADMIT Surgery; ATTEND Surgery
PROC: 0W360ZZ Control Bleeding in Neck, Open Approach (ICD-10-PCS; 2019-08-02)
PROC: 5A1955Z Respiratory Ventilation, Greater than 96 Consecutive Hours (ICD-10-PCS; 2019-08-02)
PROC: 0BH17EZ Insertion of Endotracheal Airway into Trachea, Via Natural or Artificial Opening (ICD-10-PCS; 2019-08-02)
PROC: 0JC50ZZ Extirpation of Matter from Left Neck Subcutaneous Tissue and Fascia, Open Approach (ICD-10-PCS; 2019-08-02)
PROC: 5A12012 Performance of Cardiac Output, Single, Manual (ICD-10-PCS; 2019-08-02)
PROC: 0CH Mouth and Throat, Insertion (ICD-10-PCS; 2019-08-02)
PROC: 0GBG0ZZ Excision of Left Thyroid Gland Lobe, Open Approach (ICD-10-PCS; principal; 2019-08-02 11:31)
PROC: 02HV33Z Insertion of Infusion Device into Superior Vena Cava, Percutaneous Approach (ICD-10-PCS; 2019-08-03)
DX: D09.3 Carcinoma in situ of thyroid and other endocrine glands (principal); T81.11XA Postprocedural cardiogenic shock, initial encounter; I97.121 Postprocedural cardiac arrest following other surgery; L76.22 Postprocedural hemorrhage of skin and subcutaneous tissue following other procedure; J98.8 Other specified respiratory disorders; Z95.5 Presence of coronary angioplasty implant and graft; I10 Essential (primary) hypertension; E11.9 Type 2 diabetes mellitus without complications; E78.5 Hyperlipidemia, unspecified; I25.10 Atherosclerotic heart disease of native coronary artery without angina pectoris; Z79.82 Long term (current) use of aspirin; Z79.84 Long term (current) use of oral hypoglycemic drugs; T17.290A Other foreign object in pharynx causing asphyxiation, initial encounter
CPT/HCPCS: 31500; 36415; 36600; 70490; 71045; 80048; 82805; 82948; 83540; 84466; 85007; 85025; 85027; 85610; 85730; 87070; 87205; 88305; 88307; 92950; 94003; 96372; 97139; G0378; J0330; J0360; J0690; J1100; J1170; J1940; J2001; J2250; J2405; J2920; J2930; J3010; J3370; J3480; J7030; J7040; J7050

== ENCOUNTER → 2024-03-20 | Day surgery (SDC) | payer MEDICARE ==
[2024-03-19 09:42] LABS: BASOPHILS % 0.2 % (0.0-1.0); EOSINOPHILS # (AUTO) 0.1 (0.0-0.4); EOSINOPHILS % 1.6 % (0.0-6.0); HEMATOCRIT 37.9 % (34.2-44.1); HEMOGLOBIN 12.2 g/dL (12.0-16.0); LYMPHOCYTES # (AUTO) 2.1 (1.0-3.2); LYMPHOCYTES % 33.4 % (18.0-39.1); MEAN CORPUSCULAR HEMOGLOBIN 30.1 pg (28-32); MEAN CORPUSCULAR HGB CONC 32.2 g/dL (31-35); MEAN CORPUSCULAR VOLUME 93.6 fL (81-99); MONOCYTES # (AUTO) 0.5 (0.2-0.8); MONOCYTES % 7.5 % (4.4-11.3); NEUTROPHILS # (AUTO) 3.7 (2.1-6.9); NEUTROPHILS % 57.3 % (38.7-80.0); PLATELET COUNT 210 x10e3/uL (140-360); RED BLOOD COUNT 4.05 x10e6/uL (3.6-5.1); RED CELL DISTRIBUTION WIDTH 13.2 % (11.7-14.4); WHITE BLOOD COUNT 6.37 x10e3/uL (4.8-10.8)
[2024-03-19 10:08] LABS: ANION GAP 12.3 mmol/L (8-16); CREATININE, SERUM 0.71 mg/dL (0.57-1.11)
[2024-03-19 10:10] LABS: POTASSIUM 3.3 mmol/L (3.5-5.1)
[~2024-03-20] MED LIST changes: +ACETAMINOPHEN 1000 MG/100 ML IV ONE; +EPINEPHRINE HCL 1:1000 1ML 1 MG/ML AMP ONE; +FAMOTIDINE 20 MG/2 ML VIAL IV ONE; +FENTANYL CITRATE/PF 100MCG/2 ML INJ ONE; +LEVOXYL25 MCG PO; +LIDOCAINE 1% W/EPINEPHRINE 20 ML VIAL ONE; +LIDOCAINE HCL 2% LOCAL 20 ML VIAL ONE; +LIDOCAINE HCL 2% LOCAL INJ 5 ML SDV VIAL INJ ONE; +MIDAZOLAM HCL 2 MG/2 ML VIAL ONE; +MOTRIN200 MG PO; +NEURONTIN300 MG PO; +ONDANSETRON HCL INJ 2MG/ML 2ML 2 MG/ML VIAL ONE; +OZEMPIC0.25 MG/02 SC; +PROPOFOL IV EMULSION 10 MG/ML 20 ML VIAL ONE; +ROCURONIUM BROMIDE 10 MG/ML 5ML VIAL IV ONE; +ROPIVACAINE 0.5% 5 MG/ML 30 ML SDV ONE; +SEVOFLURANE INHAL SOLN 250 ML PEN BTL ONE; +SODIUM CHLORIDE 0.9% 500ML 500 ML ONE; +SUGAMMADEX SODIUM 200 MG/2 ML VIAL IV ONE; +TRANEXAMIC ACID 20 ML ONE; +Vancomycin IV 500 MG ONE
[2024-03-20] MEDS: LACTATED RINGER'S 1,000 ML ONE (06:19)
[2024-03-20] MEDS: DEXAMETHASONE SOD PHOS 10 MG/1 ML VIAL ONE (06:20)
[2024-03-20] MEDS: GABAPENTIN 300 MG CAP ONE (06:20)
[2024-03-20] MEDS: CEFAZOLIN SODIUM 2 GM ONE (06:20)
[2024-03-20] MEDS: CELECOXIB 200 MG CAP ONE (06:20)
[2024-03-20] MEDS: ALBUTEROL/IPRATROPIUM 3 ML NEB ONE (10:30)
[2024-03-20] MEDS: LABETALOL HCL 5 MG/ML 20ML VIAL IV ONE (11:09)
[2024-03-20 11:30] VITALS: TEMP 97.4
[2024-03-20 11:45] VITALS: BP 155/91; PULSE 82; RESP 15; O2SAT 95
== END | disposition home or self-care (01) ==
LOC: OR 05:25
PROVIDERS: ATTEND Specialist
DX: M19.011 Primary osteoarthritis, right shoulder (principal); E11.9 Type 2 diabetes mellitus without complications; I10 Essential (primary) hypertension; E78.5 Hyperlipidemia, unspecified; E03.9 Hypothyroidism, unspecified; Z01.810 Encounter for preprocedural cardiovascular examination; Z01.812 Encounter for preprocedural laboratory examination; Z01.818 Encounter for other preprocedural examination; Z79.82 Long term (current) use of aspirin; Z79.899 Other long term (current) drug therapy; Z79.1 Long term (current) use of non-steroidal anti-inflammatories (NSAID); Z79.85 Long-term (current) use of injectable non-insulin antidiabetic drugs; Z95.5 Presence of coronary angioplasty implant and graft; Z85.850 Personal history of malignant neoplasm of thyroid; Z92.3 Personal history of irradiation
CPT/HCPCS: 23470; 36415 ×2; 71046; 73020; 80048; 82948; 85025; 86850; 86900; 93005; C1713; J0131; J0171; J1100; J2001 ×2; J2250; J2405; J2704; J2795; J3010; J3370; J3490; J7040; J7121

== ENCOUNTER 2024-06-04 09:51 | Outpatient (RCR) | payer MEDICARE ==
[~2024-06-04 09:51] MED LIST changes: -ACETAMINOPHEN 1000 MG/100 ML IV ONE; -EPINEPHRINE HCL 1:1000 1ML 1 MG/ML AMP ONE; -FAMOTIDINE 20 MG/2 ML VIAL IV ONE; -FENTANYL CITRATE/PF 100MCG/2 ML INJ ONE; -LIDOCAINE 1% W/EPINEPHRINE 20 ML VIAL ONE; -LIDOCAINE HCL 2% LOCAL 20 ML VIAL ONE; -LIDOCAINE HCL 2% LOCAL INJ 5 ML SDV VIAL INJ ONE; -MIDAZOLAM HCL 2 MG/2 ML VIAL ONE; -ONDANSETRON HCL INJ 2MG/ML 2ML 2 MG/ML VIAL ONE; -PROPOFOL IV EMULSION 10 MG/ML 20 ML VIAL ONE; -ROCURONIUM BROMIDE 10 MG/ML 5ML VIAL IV ONE; -ROPIVACAINE 0.5% 5 MG/ML 30 ML SDV ONE; -SEVOFLURANE INHAL SOLN 250 ML PEN BTL ONE; -SODIUM CHLORIDE 0.9% 500ML 500 ML ONE; -SUGAMMADEX SODIUM 200 MG/2 ML VIAL IV ONE; -TRANEXAMIC ACID 20 ML ONE; -Vancomycin IV 500 MG ONE
== END 2024-06-06 ==
LOC: PT 09:51
PROVIDERS: ATTEND Physician Assistant
DX: Z47.1 Aftercare following joint replacement surgery (principal); Z96.611 Presence of right artificial shoulder joint; M25.511 Pain in right shoulder; M25.611 Stiffness of right shoulder, not elsewhere classified; M62.81 Muscle weakness (generalized)

== ENCOUNTER 2024-07-06 13:54 | Outpatient (RCR) | payer MEDICARE | END 2024-07-07 | LOC: PT 13:54 | PROVIDERS: ATTEND Physician Assistant | DX: Z47.1 Aftercare following joint replacement surgery (principal); Z96.611 Presence of right artificial shoulder joint ==

== ENCOUNTER 2024-07-26 09:00 | Outpatient (RCR) | payer MEDICARE | END 2024-08-06 | LOC: PT 09:00 | PROVIDERS: ATTEND Physician Assistant | DX: Z47.1 Aftercare following joint replacement surgery (principal); Z96.611 Presence of right artificial shoulder joint; M25.511 Pain in right shoulder; M25.611 Stiffness of right shoulder, not elsewhere classified; M62.81 Muscle weakness (generalized) ==